=== PATIENT | male | born 1975 | race Caucasian/White ===

== ENCOUNTER 2017-09-12 20:41 | Inpatient (IN) | payer MEDICAID, OTHER ==
[~2017-09-12] VITALS: Ht 182.9 cm; Wt 148.3 kg
[2017-09-12] MEDS ORDERED: ABILIFY30 MG PO (21:01)
[2017-09-12] MEDS ORDERED: CHLORPROMAZINE100 MG PO (21:04)
[2017-09-12] MEDS ORDERED: CHLORPROMAZINE200 MG PO (21:32)
[2017-09-12] MEDS ORDERED: KLONOPIN2 MG PO (21:34)
[2017-09-12] MEDS ORDERED: LEXAPRO10 MG PO (21:34)
[2017-09-12] MEDS ORDERED: HYDROXYZINE HCL50 MG PO (21:35)
[2017-09-12] MEDS ORDERED: LAMICTAL25 MG PO (22:11)
[2017-09-12] MEDS ORDERED: LAMICTAL200 MG PO (22:11)
[2017-09-12] MEDS ORDERED: CHLORTHALIDONE25 MG PO (22:12)
[2017-09-12] MEDS ORDERED: MINIPRESS5 MG PO (22:12)
[2017-09-12] MEDS ORDERED: NORVASC10 MG PO (22:12)
[2017-09-12] MEDS ORDERED: FLOVENT HFA12 G1 INH (22:13)
[2017-09-12] MEDS ORDERED: LASIX20 MG PO (22:13)
[2017-09-12] MEDS ORDERED: AMARYL4 MG PO (22:15)
[2017-09-12] MEDS ORDERED: LISINOPRIL10 MG PO (22:16)
[2017-09-12] MEDS ORDERED: METFORMIN HCL1000 MG PO (22:16)
[2017-09-12] MEDS ORDERED: BACLOFEN10 MG PO (22:17)
[2017-09-12] MEDS ORDERED: SIMVASTATIN40 MG PO (22:17)
[2017-09-12] MEDS ORDERED: NORCO 5-325 TA1 EACH PO (22:17)
--- NOTE | 2017-09-13 01:40 | NUR ---
PT ARRIVED TO FLOOR FROM E.D. SHORTLY AFTER 0100. PT IS ALERT/ORIENTED, FROM [facility], ESCORTED BY 2 GUARDS. PT COMPLAINS OF PAIN IN BACK AND LEG, DR. CHRISTIE AWARE AND WOULD LIKE TO HOLD OFF ON PAIN MEDICATION UNTIL A FEW MORE BLOOD PRESSURE READINGS ARE OBTAINED. LUNGS CLEAR, RESPIRATIONS ARE SHALLOW AND TACHYPNIC. HR REGULAR, TACHYCARDIC. BOWEL TONES HYPOTACTIVE. MATT IN PLACE WITH TEMP PROBE. PT FEBRILE, SKIN APPEARS FLUSHED AND DIAPHORETIC. SMALL RASH NOTED TO LEFT FOREARM. CELLULITIS TO RIGHT LOWER LEG EXTENDS FROM ANKLE TO KNEE, APPEARS RED AND HOT TO TOUCH. EDEMA PRESENT IN RIGHT LOWER LEG, NON- PITTING. PERIPHERAL PULSES ARE STRONG AND EQUAL BILATERALLY, CMS IS INTACT. RIGHT LEG ELEVATED ON PILLOWS. IV SITES X2, PATENT, INFUSING WNL. CB, NO SLIDING SCALE REQUIRED. RESTRAINTS X4 EXTREMITIES. GUARDS REMAINS IN ROOM. WILL CONTINUE TO MONITOR.
--- NOTE | 2017-09-13 03:43 | NUR ---
PT CONTINUES TO RATE BACK PAIN 5/10 AND HAS A TEMP OF 102.2. PRN TYLENOL ADMINISTERED AT THIS TIME. WILL CONTINUE TO MONITOR.
--- NOTE | 2017-09-13 04:00 | NUR ---
ASSESSMENT COMPLETED. PT IS ALERT/ORIENTED. LUNGS CLEAR, DIM IN BASES, 2L O2 VIA NC IN PLACE, TACHYPNIC. HR REGULAR, TACHYCARDIC. BOWEL TONES REMAIN HYPOACTIVE. REDNESS TO RIGHT LOWER LEG WAS OUTLINED EARLIER IN THE SHIFT, REDNESS REMAINS WITHIN OUTLINE. RLE CONTINUES TO APPEAR RED AND FEEL HOT TO TOUCH WITH NON-PITTING EDEMA PRESENT. 2+EDEMA NOTED IN BILATERAL FEET. PULSES REMAIN STRONG AND EQUAL BILATERALLY. MATT PATENT. RASH TO LEFT FOREARM NO LONGER VISIBLE. 2 GUARDS REMAIN AT BEDSIDE, SHACKLES X4 EXTREMITIES REMAIN IN PLACE. CMS INTACT. PT DENIES REQUESTS, WILL CONTINUE TO MONITOR.
--- NOTE | 2017-09-13 06:00 | NUR ---
PT'S WORK OF BREATHING APPEARS INCREASED, HE TAKES SHALLOW BREATHS AND EXHALES THROUGH LOOSE LIPS. RATE REMAINS TACHYPNIC. CALLED R.T. TO HAVE HIM COME PLACE CPAP, DISCUSSED THIS WITH PT WHO WAS SLIGHTLY RESISTANT AT FIRST, BUT AGREED TO WEAR THE CPAP FOR A LITTLE WHILE. INSTRUCTED THE GUARDS HOW TO REMOVE THE MASK IF PT STARTS ACTING LIKE HE WANTS IT REMOVED, SINCE HIS HANDS ARE RESTRAINED AND HE IS UNLIKELY ABLE TO REACH THE MASK HIMSELF. PT TOLERATED PLACEMENT OF CPAP WELL, WILL CONTINUE TO MONITOR.
--- NOTE | 2017-09-13 07:22 | NUR ---
Patient's SCr has improved, from 2.82 to 2.13. Est ClCr = 68.4ml/min. Enoxaparin now dosed at 40mg sub-q daily per protocol
--- NOTE | 2017-09-13 08:55 | NUR ---
PT AWAKE, ABLE TO EAT 100% OF HIS BREAKFAST. PT C/O BACK PAIN, PO TYLENOL GIVEN. PT REQUIRES REASURANCE THAT HE IS RECIEVING HIS PSYCH MEDICATIONS. PT PRODUCING EXCELLENT AMOUNTS OF URINE.
--- NOTE | 2017-09-13 12:15 | NUR ---
PT ABLE TO EAT 100% OF BREAKFAST AND LUNCH. PT C/O 8 BACK PAIN, REPOSITIONED PT IN BED WITH ASSISTANCE FROM TWO AMANDA FLOREZ. PT AMOS WELL. PT RESISTANT TO COOLING METHODS.
--- NOTE | 2017-09-13 12:21 | NUR ---
IV SITE IN RT UPPER ARM REDRESSED, SITE INTACT, FLUSHES EASILY.
--- NOTE | 2017-09-13 12:55 | NUR ---
1 MG IV ATIVAN GIVEN AND LIDOCANE PATCHES APPLIED TO PT LOW BACK PER 'S BEDSIDE ORDER. BOTH [facility] GAURDS ASSISTED TO REPOSITION PT IN ORDER TO APPLY LIDOCANE PATCHES TO LOW BACK. PT AMOS WELL.
--- NOTE | 2017-09-13 13:15 | NUR ---
COOLING BLANKET APPLIED TO PT PER 'S ORDERS. SET TO MODERATE COOL SPEED. PT AMOS WELL.
--- NOTE | 2017-09-13 15:24 | NUR ---
PT WAKES EASILY TO TAKE PO PILLS. PT STATES "I THINK THAT BLANKET IS WORKING, I'M FEELING BETTER". PT CURRENT TEMP IS 102.8, HR DOWN TO 123. PT STATES "I WAS ABLE TO SLEEP A LITTLE BIT". AMANDA FLOREZ X2 AT BEDSIDE.
--- NOTE | 2017-09-13 16:07 | NUR ---
Medications reconciled using [employer] MARS
--- NOTE | 2017-09-13 17:10 | NUR ---
CALLED TO UPDATE ON PT STATUS, SPREADING REDNESS ON RT LEG, INCREASED TEMP TO 103.6. ORDER GIVEN TO TURN TEMP DOWN ON COOLING BLANKET TO 60 DEGREES.
--- NOTE | 2017-09-13 17:20 | NUR ---
COOLING BLANKET TURNED DOWN TO 60 DEGREES. PT GOWN AND TOP SHEET CHANGED. PT AMOS WELL, PT APPEARS TO BECOMING SOMNOLENT.
--- NOTE | 2017-09-13 17:25 | NUR ---
PT DINNER [place], PT REFUSED, STATES "I JUST DON'T WANT ANY FOOD RIGHT NOW".
--- NOTE | 2017-09-13 17:45 | NUR ---
IV FLUIDS INCREASED TO 150 ML/HR PER VERBAL ORDER.
--- NOTE | 2017-09-13 18:06 | NUR ---
PT DRANK 250 ML ICE WATER, COOL DAMP CLOTH PLACED ON HEAD TO ASSIST WITH COOLING PT.
--- NOTE | 2017-09-13 20:19 | NUR ---
assessment done.TALKED WITH PATIENT ABOUT PLAN OF CARE FOR NIGHT. INCICATES UNDERSTANDING. MATT CATH PATENT WITH CLEAR YELLOW URINE NOTED. URINARY OUTPUT MONITORED Q 1 HR. TEMP MONITORED VIA MATT TEMP PROBE. IVF INFUSING AT 150 ML/HR. OFFICERS X 2 IN ROOM. COOLING BLANKET ON. CURRENT TEMP-103.2. CPAP ON AT 35% FIO2. RR-38.
--- NOTE | 2017-09-13 21:07 | NUR ---
ROUTINE MEDS GIVEN. MORPHINE 2 MG IV GIVEN FOR GENERALIZED PAIN. VISTARIL 100MG PO GIVEN WELL TYLENOL 650 MG. PATIENT IS SOMEWHAT IRRITABLE ABOUT STAFF BOTHERING HIM. STATES "I WANT TO BE LEFT ALONE" EXPLAINED TO PATIENT ABOUT TREATMENTS, HOWEVER PATIENT REMAINS IRRITATED. ACCUCHECK-154, NOVOLOG 2 UNITS SQ GIVEN.
--- NOTE | 2017-09-13 23:35 | NUR ---
MORPHINE 2 MG IV REPEATED OF COMFORT. HAS BEEN MORE RESTFUL SINCE MORPHINE GIVEN EARLIER. HR-110,RR-30.
--- NOTE | 2017-09-14 00:15 | NUR ---
CPAP OFF PER PT WISHES DURNING MID LINE CATH PLACEMENT. O2 AT 4 LITERS PER NC APPLIED. O2 SAT WITH CPAP 35% 95 TO 97. ON 4 L NC, SAT 90 TO 92. RESP RATE FROM 36 ON CPAP TO 42 ON NC. USING ABD MUSCLES WITH BREATHING.
--- NOTE | 2017-09-14 00:26 | NUR ---
ATIVAN 1 MG IV GIVEN, FOR MID LINE PLACEMENT.
--- NOTE | 2017-09-14 01:21 | NUR ---
MIDLINE INSERTION NOTE: ASKED BY DR. CHRISTIE TO EVALUATE PATIENT FOR A POTENTIAL MIDLINE PLACEMENT. AFTER REVIEWING THE CHART AND DISCUSSING POTENTIAL PROCEDURE WITH THE PATIENT, NO ABSOLUTE CONTRAINDICATIONS WERE IDENTIFIED. PATIENT ABLE TO SIGN CONSENT FORM. PATIENT'S RIGHT ARM WAS EVALAUTED WITH THE [employer] SITE RITE MACHINE. PT'S BASILIC, BRACHIAL, AND CEPHALIC VEINS WERE IDENTIFIED. PATIENT'S CEPHALIC WAS EASIEST TO IDENTIFY AND NOTED TO BE APPROX 8 FR. PT'S BRACHIAL WAS ALSO NOTED TO BE GREATER THAN 8 FR AND THE LARGEST OF THE THREE VESSELS IDENTIFIED. PATIENT'S BASILIC VEIN WAS AT LEAST 7 FR BUT WAS HARD TO LOCATE, THERE SEEMED TO BE SEVERAL SIMILAR SIZED VEINS IN THE SAME LOCATION THE BASILIC. ULTIMATELY, AFTER USING [employer] RECOMMENDED STERILE TECHINIQUE GUIDELINES TO STERILLY PREP THE PATIENT'S ARM, THE BASILIC VEIN WAS ACCESSED ON THE FIRST TRY. THE GUIDEWIRE, INTRODUCER, AND MIDLINE ALL ADVANCED EASILY INTO THE VEIN. THERE WAS DARK, NONPULSATILE BLOOD RETURN FROM THE IV ACCESS. THE MIDLINE CATHETER WAS NOT TRIMMED AND LEFT AT 20 CM DUE TO PATIENT'S ARM LENGTH UPON MEASUREMENT. THE MIDLINE CATHETER ARMANDO BLOOD BACK AND FLUSHES EASILY. DRESSING WITH SECUREMENT DEVICE AND ANTIMICROBIAL PATCH UNDERNEATH WERE APPLIED. REPORT GIVEN TO DAWNA BERTRAND WHO IS CARING FOR THE PATIENT. [employer] GUARDS REMAINED AT BEDSIDE ENTIRE PROCEDURE. PATIENT TOLERATED PROCEDURE WELL.
--- NOTE | 2017-09-14 01:21 | NUR ---
MID LINE CATH PLACED TO R UPPER INNER DELTOID BY Garrett TIWARI RN. PATIENT TOLERATED WELL. CPAP REAPPLIED.
--- NOTE | 2017-09-14 03:30 | NUR ---
TYLENOL 650 MG PO GIVEN FOR FEVER. MORPHINE 2 MG IV REPEATED FOR COMFORT.
--- NOTE | 2017-09-14 04:30 | NUR ---
SLEEPING WIHT BIPAP ON. HAS FORCED EXP PHASE.
--- NOTE | 2017-09-14 07:07 | NUR ---
MERLINE JACK. O2 AT 4 L NC. TEMP-101.5. COOLING BLANKET OFF SINCE 0500. RLL ELEVATED. REMAINS PINK IN COLOR. LEG UNCHANGED THROUGH THIS SHIFT. BEDSIDE REPORT GIVEN.
--- NOTE | 2017-09-14 08:15 | NUR ---
IV SITE AND MIDLINE INTACT, NO REDNESS OR SWELLING NOTED, FLUIDS INFUSING EASILY INTO MIDLINE SITE. LEFT HAND IV SITE FLUSHES EASILY. PT SLIGHTLY SOMNOLENT, DIFFICULT TO COMMUNICATE WITH HE IS A MAN OF FEW WORDS.
--- NOTE | 2017-09-14 08:16 | NUR ---
Vancomycin dosed at 2g iv q 12 hrs. Trough to be drawn today 09/14/17 at 1130 *just prior to 4th dose. Renal function has improved significantly since admittance. Serum creatinine declined from 2.82 mg/dL to 1.26 mg/dL this am.
--- NOTE | 2017-09-14 08:21 | NUR ---
PT PLACED BACK ON COOLING BLANKET HIS TEMP IS 102.2
--- NOTE | 2017-09-14 10:20 | NUR ---
LABS DRAWN FROM MIDLINE VENOUS ACCESS FOR BLOOD CULTURES, 10 ML WASTE. LIDOCANE PATCHES ON BACK REPLACED WITH TWO GAURDS ASSISTING TO LIFT PT TO PARTIAL SITTING POSITON. PT VERY STIFF AND PAINFUL TO MOVE. PT COOPERATIVE.
--- NOTE | 2017-09-14 11:12 | NUR ---
PT TAKEN OFF OF COOLING BLANKET CORE TEMP IS NOW 38.1 C. MATT TEMP PROB MOVED BACK TO MAIN ISHAN MONITOR. PT APPEARS TO BE SLEEPING AT THIS TIME, CPAP PLACED ON PT.
--- NOTE | 2017-09-14 12:16 | NUR ---
PT PLACED ON CPAP
--- NOTE | 2017-09-14 12:57 | NUR ---
PT DIAPHORETIC AND SLEEPING, PT WAKES EASILY STATES "I FEEL BETTER". PT HAS CPAP BACK ON AFTER TAKING PILLS. IV SITES INTACT, NO REDNESS OR SWELLING NOTED, FLUIDS INFUSING EAISLY. COOLING BLANKET STILL OFF PT HIS TEMP IS NOW DOWN TO 99.8
--- NOTE | 2017-09-14 13:34 | NUR ---
Vancomycin trough level today drawn just prior to 4th dose = 9.0. (goal = 15-20). Change dosing to 2 g iv q 8 hrs (decreasing dosing interval from 12 to 8 hrs). Will redraw vancomycin trough level 09/16 at 11:30
--- NOTE | 2017-09-14 14:10 | NUR ---
CALLED TO UPDATE ON BLISTERS AND SKIN BREAKDOWN, ORDER GIVEN OVER PHONE TO REQUEST [facility] TO REMOVE BELLY CHAINS FOR PREVENTION OF FURTHER SKIN BREAKDOWN.
--- NOTE | 2017-09-14 15:30 | NUR ---
PT SAT UP ON THE SIDE OF THE BED WITH HEAVY THREE PERSON ASSIST. WASHED PT HAIR, FACE AND BODY. MATT CATH CARE DONE. BLISTERS DESCOVERED ON PT BUTTOCKS AND UNDER [employer] CORRECTIONAL BELLY CHAINS. CAREFULLY WASHED AREAS AND DRIED, PLACED PILLOW CASES INBETWEEN CHAINS AND SKIN, CHAINS LOOSENED BY [employer] OFFICER PER NURSE REQUEST. LINENS AND GOWN CHANGED. PT ABLE TO STAND AT BEDSIDE WITH WALKER AND TWO PERSON SUPPORT TWICE FOR ABOUT 1 MIN. PT ABLE TO PASS FLATUS.
--- NOTE | 2017-09-14 16:28 | NUR ---
BELLY CHAINS REMOVED.
--- NOTE | 2017-09-14 16:40 | NUR ---
PICTURES TAKEN OF BLISTERS AND SKIN BREAKDOWN FROM BELLY CHAINS, AMANDA PAYTON SIGNED PICTURE CONSENT FORM FOR PT. PT REPOSTIONED IN BED FOR COMFORT.
--- NOTE | 2017-09-14 18:45 | NUR ---
REQUESTED TO HAVE PT PLACED ON WARMING BLANKET DUE TO CORE BODY TEMP OF 96.3, GOAL CORE BODY TEMP OF 99.3.
--- NOTE | 2017-09-14 18:50 | NUR ---
PT PLACED BACK ON [facility] WARMING BLANKET DUE TO CORE BODY TEMP OF 96.3.
--- NOTE | 2017-09-14 19:30 | NUR ---
SHIFT REPORT RECEIVED FROM DAWNA BE. OBSERVED PT'S REDNESS TO LEGS, AND BLISTERS/REDNESS TO ABDOMEN AND BACK WHERE BELLY CHAIN WAS. PT CURRENTLY HAD CPAP IN PLACE, BUT BEGAN PULLING ON IT AND SO WE SWITCHED TO OXYMASK WITH 4L O2. 2 GUARDS AT BEDSIDE. NO REQUESTS AT THIS TIME.
--- NOTE | 2017-09-14 21:20 | NUR ---
ASSESSMENT COMPLETED. PT APPEARS LETHARGIC, IS SLOW TO RESPOND, EYES REMAIN CLOSED WHILE HE ANSWERS QUESTIONS. DENIES PAIN. LUNGS SOUND DIMINISHED, COARSE IN LEFT UPPER LOBE. 6L O2 VIA NC IN PLACE, PT REMOVED FOR A FEW MINUTES AND DESATURATED TO 87%, PT AGREED TO WEAR IT AFTER SOME ENCOURAGEMENT, SATS RETURNED TO 92%. HR TACHY, REGULAR. BOWEL TONES SLIGHTLY HYPOACTIVE, ABDOMEN IS LARGE AND SLIGHTLY FIRM. SKIN APPEARS FLUSHED. PT WEARING WARMING BLANKET ATTACHED TO MATT TEMP PROBE SET TO 99.3, CORE TEMP CURRENTLY 98.3. REDNESS TO RIGHT LOWER LEG OUTLINED, APPEARS TO BE RECEDING AND APPEARS MORE PINK AND LESS RED NOW, STILL FEELS HOT TO THE TOUCH. REDNESS NOTED TO RIGHT THIGH AND GROIN, OUTLINED. EDEMA PRESENT IN RLE AND BILAT FEET. BLISTERS AND STAGE 2 PRESURE ULCERS AROUND BACK AND ABDOMEN WHERE BELLY CHAIN WAS. BELLY CHAIN NOW REMOVED, ANKLE RESTRAINTS REMAIN IN PLACE AND 2 GUARDS AT BEDSIDE. MATT DRAINING FREELY, UO QS. CB, NO INSULIN COVERAGE REQUIRED. PT DENIES NEEDS, WILL CONTINUE TO MONITOR.
--- NOTE | 2017-09-14 22:43 | NUR ---
PATIENT PLACED BACK ON CPAP AT THIS TIME AT 35% FI02. PT'S SP02 WAS HOVERING AT 89% FOR A FEW MINUTES ON 6 L NASAL CANNULA. PATIENT AGREEABLE TO WEAR CPAP BUT IS STILL SLEEPY. PATIENT'S WARMING BLANKET WAS TURNED OFF AT THIS TIME WELL DUE TO TEMP BEING 99.5. WILL CONTINUE TO MONITOR CLOSELY. HEART RATE IN THE UPPER 90s-100s, SINUS. SP02 IS NOW 95% ON CPAP AND RR IS STILL ELEVATED, CURRENTLY AT 31. [facility] GUARDS REMAIN IN ROOM AND ATTENTIVE.
--- NOTE | 2017-09-14 23:29 | NUR ---
IV PUMP ALARMING, VANCO INFUSION COMPLETED. PT'S TEMP: 99.9, REMOVED WARMING BLANKET AT THIS TIME. PT RESTING, NO APPARENT DISTRESS. CPAP IN PLACE. WILL CONTINUE TO MONITOR.
--- NOTE | 2017-09-15 | NUR ---
PT'S TEMP CONTINUED TO INCREASE TO 100.4, PRN TYLENOL ADMINISTERED. PLACED ON OXYMASK FOR FEW MINUTES AFTER PT SWALLOWED PILLS, THEN REPLACED CPAP. CONTINUES TO DENY PAIN AND NAUSEA. LUNGS SOUND CLEAR/DIM, REMAINS TACHYPNIC. HR TACHY. BOWEL TONES ACTIVE. MATT PATENT. REDNESS TO LEG APPEARS UNCHANGED. IVF INFUSING WNL. PT DENIES NEEDS, WILL CONTINUE TO MONITOR.
--- NOTE | 2017-09-15 00:36 | EKG ---
[facility] [id number] [facility] [place] [address] Signed Sinus tachycardia Otherwise normal ECG No previous ECGs available Confirmed by ALEJANDRA CHRISTIE MD ([id number]) on 09/15/2017 12:35:54 AM Electronically Signed By: ALEJANDRA CHRISTIE MD 09/15/17 0036 PATIENT NAME: GUILLERMINASCHMIDTABHIJIT JACKSON JR Electrocardiogram DATE OF : 77 PHYSICIAN: ALEJANDRA CHRISTIE MD REPORT #: [id number] REPORT IS CONFIDENTIAL AND NOT TO BE RELEASED WITHOUT AUTHORIZATION
--- NOTE | 2017-09-15 00:52 | NUR ---
PT PLACED ON OXYMASK ON 5L O2. PRN IBUPROFEN GIVEN FOR TEMP: 101.2. SGT. NELSON FROM THE [facility] CAME TO EVALUATE PT'S SKIN SINCE PT'S HANDS HAVE NOT BEEN RESTAINED SINCE ~1600 TODAY. DISCUSSED WITH HIM PT'S CONDITION AND SKIN BREAKDOWN ISSUES. HE AGREES TO DIFFERENT FORM OF RESTRAINTS RATHER THAN THE CHAIN, STATES HE WILL RETURN.
--- NOTE | 2017-09-15 02:42 | NUR ---
PATIENT UNCOMFORTABLE IN BED AND ASKING TO BE REPOSITIONED. PT STATES HIS BACK IS HURTING HIM. PT GIVEN 2 MG IV MORPHINE AT THIS TIME. PT PLACED BACK ON CPAP AFTER MORPHINE GIVEN. PT NOTED TO BE VISIBLY SWEATING. LAST BP 111/60 (70). PT HELPED WIPE SWEAT OFF HIS FACE. TEMP IS 100.1 PER MATT TEMP PROBE. SP02 IS 98% ON CPAP 35 % FI02. HEART RATE CURRENTLY 98.
--- NOTE | 2017-09-15 03:29 | NUR ---
CALLED AND SPOKE TO DR. CHRISTIE ABOUT PT'S DECREASING URINE OUTPUT. DR. CHRISTIE ORDERED TO INCREASE HIS MAINTANENCE FLUIDS TO 150ML/HR AND ADMINISTER A ONE TIME 500ML NS BOLUS OVER ONE HOUR. DR. CHRISTIE ALSO NOTIFIED THAT PT HAD FEVER AND RECEIVED TYLENOL AND ADVIL. PT REQUESTED TO SIT UP AT SIDE OF BED. PT ASSISTED TO SIDE OF BED WITH 2 RN AND 2 GUARDS ASSISTING HIM. PT DIAPHORETIC. SAT UP FOR A FEW MINUTES AND THEN WAS READY TO LAY DOWN AGAIN. RIGHT LEG ELEVATED ON 2 PILLOWS AGAIN. PT APPEARS COMFORTABLE. SPO2: 96% ON 3L O2 VIA NC. WILL CONTINUE TO MONITOR.
--- NOTE | 2017-09-15 04:10 | NUR ---
PT SLEEPING, NO APPARENT DISTRESS. RR:28. SPO2: 90% ON 3L, TITRATED UP TO 4L O2 VIA NC. HR REGULAR. MATT PATENT. IVF INFUSING WNL. ANKLE RESTRAINTS IN PLACE, 2 GUARDS AT BEDSIDE. WILL CONTINUE TO MONITOR.
--- NOTE | 2017-09-15 05:43 | NUR ---
IN TO DRAW LABS FROM MIDLINE IV. PT SLEEPING, WORK OF BREATHING APPEARS SOMEWHAT INCREASED, SWITCHED TO CPAP, PT TOLERATED WELL. TEMP: 98.1, WARM BLANKETS PLACED ON PT. WILL CONTINUE TO MONITOR.
--- NOTE | 2017-09-15 09:17 | NUR ---
PT TEMP INCREASED EVEN WITH ADVIL PO GIVEN. COOLING BLANKET PLACED ON PT. CURRENT TEMP 101.7
--- NOTE | 2017-09-15 09:42 | NUR ---
DR CHRISTIE INTO SEE PT THIS AM. COOLING BALAMKET REMOVED AT THIS TIME.TEMP 102.0 PT C/O'S BEING COLD.
--- NOTE | 2017-09-15 10:08 | NUR ---
PT WORK OF BREATHING INCREASEING, BUT PT REFUSES TO WEAR BIPAP"I WILL TEAR THIS MASK TO PICES IF I HAVE TO WEAR IT" THIS WAS REMOVED, PLACED BACK ON NC AT 5L'S. WITH A FIO2 OF 91% AT THIS TIME.
--- NOTE | 2017-09-15 10:48 | NUR ---
PT WANTED TO GET UP OUT OF BED AT THIS TIME. ALLOWED PT TO STAND AT THE EDGE "I HAVE TO GO TO THE BATHROOM" ONCE UP AND STANDING AT THE EDGE HE WANTED TO GO BACK TO BED. FOUR PERSON TO ASSIST PT FROM STANDING TO A LYIN POSITION AND MOVE UP IN BED. HEART RATE INCREASES TO THE 120'S BUT ONCE SETTLED HE BACK INTO THE ONE TEENS. TWO CORRECTIONAL OFFICERS ASSISTED ALSO WITH THIS PROCESS.
--- NOTE | 2017-09-15 12:00 | NUR ---
PT HAVING INCREASED RESTLESSNESS AND ANGERY WANTING TO GO HOME. PT MEDICATED WITH 2MG IVP MORPHINE AND 1MG IVP ATAVIN AT THIS TIME.
--- NOTE | 2017-09-15 12:18 | NUR ---
PT APPEARS TO BE RESTING AT THIS TIME, TALKS TO SELF WHILE SLEEPING, RESP RATE CONTIOUES TO BE ELEVATED EVEN WITH THE VAPOTHERM INPLACE.
--- NOTE | 2017-09-15 14:51 | NUR ---
PT TURNED TO HIS LEFT SIDE AT THIS TIME, ALSO MEDICATED WITH 2MG MORPHINE FOR SOB. PT C/O'S 'CAN'T GET ENOUGH AIR". PT FACE REMAINS RED IN COLOR. TWO CORRECTIONAL OFFICERS REMAIN AT THE BEDSIDE.
--- NOTE | 2017-09-15 14:58 | NUR ---
NUTRITION CONSULT ORDERED - NOT CLEAR WHAT FOR. PATIENT IS MORBIDLY OBESE BUT RESIDES AT THE [facility] WITH BIPOLAR DISORDER AND AGGRESSIVE BEHAVIOR. HE IS ON A 2000 CALORIE ADA DIET. IDEAL BW IS 185 LBS. ADJUSTED BW IS 220 LBS. ESTIMATED CALORIE NEEDS USING ADJ BW: [id number]. ESTIMATED PROTEIN NEEDS: 100-120 GRAMS/DAY. NO OTHER NUTRITION INTERVENTION DONE AT THIS TIME. WILL CONTINUE TO BE AVAILABLE IF NEEDED.
--- NOTE | 2017-09-15 15:22 | NUR ---
PT WANTING TO STAND AND GET UP, ALL STAFF ASSISTED WITH THIS PROCESS. TWO CORRECTIONAL OFFICERS AND TWO NURSING STAFF. PARTICAL BED BATH COMPLETED TILL PT SIAD ENOUGH. PT REFUSED CATHETER CARE, BACK TO BED REPOSITIONED AND SIDE RAILS UP
--- NOTE | 2017-09-15 15:52 | NUR ---
PT UP TO THE BEDSIDE WITH NO RESULTS. BACK TO BED WITH FOUR PERSON ASSISTANCE. TYLENOL 650MG PO AND 400MG ADVIL PO GIVEN AT THIS TIME TO HELP WITH FEVER 101.9 PER TEMP CATHETER.
--- NOTE | 2017-09-15 16:00 | NUR ---
PT TRANSPORTED TO CT VIA BED DID WELL WITH THIS, THEN TRANSPORTED BACK TO ROOM 130. DR CHRISTIE WITH STAFF DURING CT.
--- NOTE | 2017-09-15 16:50 | NUR ---
RETURNED FROM CT, PT ASLEEP AT THIS TIME, TWO CORRECTIONAL OFFICERS PRESENT.
--- NOTE | 2017-09-15 17:51 | NUR ---
PT IS BEING FED BY THE [place]OU[place]E INSTALLER, DUE TO ALL THE LINES AT THIS TIME. PT IS EATING AND TALKING WITH THEM. TALKED WITH DR CHRISTIE, HE WOULD LIKE STAFF TO POSITION PT TO HIS LEFT SIDE TO HELP WITH HIS BREATHING.
--- NOTE | 2017-09-15 18:02 | NUR ---
PT ATE WELL AND AT THIS TIME IS RESTING. PT AT THIS TIME WILL NOT ALLOW STAFF TO REMOVE PURPLE SHEET. STAFF WILL TRY AGAIN BEFORE SHIFT CHANGE.
--- NOTE | 2017-09-15 19:00 | NUR ---
PATIENT IN ROOM WITH 2 [employer] OFFICERS AT THIS TIME. GETTING REPORT TO PREP FOR BEGINING OF SHIFT EVAL.
--- NOTE | 2017-09-15 19:40 | NUR ---
PATIENT HAS A RIGHT BASILIC VEIN MIDLINE IN PLACE HEPARIN LOCKED AND A 20g IV SL IN LEFT DORSAL HAND. LUNGS SOUND LIKE HE IS MOVING AIR WELL, VARIOUS INSPIRATORY WHEEZES THOUGHOUT ALL LUNG SOLANO. DEMINISHED IN THE BASES. PATIENT'S LUNGS DO NO SOUND WET, NO CRACKLES HEARD ON AUSCULTATION. HOVER MAT WAS REMOVED FROM UNDER THE PATIENT. THEIR ARE SMALL BLISTERS AROUND THE CIRCUMFERENCE OF MOST OF THE PATIENT'S MID SECTION AROUND THE BACK CAUSED FROM THE BELLY CHAIN THAT WAS ORIGINALLY ON THE PATIENT FROM THE CORRECTION. PATIENT IS PALE AND DIAPHORETIC. MATT DRAINING WELL. BOWEL TONES ACTIVE X4. RT LEG PROPPED UP ON 2 PILLOWS TO THE LEVEL OF THE HEART. PATIENT DENIES PAIN. RASH/CELLULITIS ON THE LOWER RT LEG CONTINUES TO RECEED DISTAL FROM THE KNEE. PATIENT ON VAPO-THERM AT 30 LITERS/50% FIO2 SATING FROM 90-93%.
--- NOTE | 2017-09-15 21:37 | NUR ---
PATIENT'S RESP RATE HAS PICKED UP, PATIENT PLACED BACK ON CPAP PER RT. 2MG MORPHINE GIVEN FOR BACK AND LEG PAIN. PATIENT ALSO GIVEN 2 UNITS SQ INSULIN FOR A [id number].
--- NOTE | 2017-09-15 21:56 | NUR ---
FRANTZ'S SAT IS 100% ON 50% FI02. FIO2 DECREASED TO 40 % FOR THE THE TIME BEING.
--- NOTE | 2017-09-15 22:45 | NUR ---
PATIENT BECOMING MORE TACHYPNEIC, PATIENT PLACED BACK ON CPAP. MID LINE DRESSING CHANGED BY DAWNA Mercado, DUE TO SOME SEROSANGUINEOUS FLUID THAT WAS UNDER THE DRESSING. DRESSING CHANGED PER PROTOCOL WITH STERILE PROCEDURE.
--- NOTE | 2017-09-15 23:30 | NUR ---
PATIENT'S HR,RR, AND TEMPERATURE HAVE BEEN INCREASING. PATIENT GOT TYLENOL TO HELP BRING A CORE TEMP OF 100.5 DOWN. HR,RR, AND CORE TEMP CONTINUED TO INCREASE. 400MG ADVIL GIVEN A SECONDARY MEASEURE TO BRING TEMP DOWN IT HAD GONE UP FROM 99.6F TO 100.6F. CALLED WITH THIS INFORMATION THAT THE PATIENT WAS MORE TACHYCARDIC, RESPIRATORY RATE WAS INCREASING, PATIENT MORE RESTLESS AND THE MEDS THAT HAD BEEN GIVEN. DR. CHRISTIE DISCUSSED CORE TEMPERATURE WITH ME AND INSTRUCTED ME TO APPLY COOLING BLANKET IF CORE TEMP MADE IT TO 101.8F CORE TEMP AND TO REMOVE THE COOLING BLANKET IF CORE TEMP DROPPED BELOW 101.8F. ALSO WROTE NEW SPECIFIC ORDERS TO WHEN TO GIVE THE TYLENOL AND IBUPROFEN FOR FEVER.
--- NOTE | 2017-09-16 02:29 | NUR ---
PATIENT SLEEPING AT THIS TIME AND APPEARS COMFORTABLE. PT CONTINUES TO WEAR CPAP AT 40%. RR CURRENTLY 28 AND SP02 NOTED TO BE 96%. VISIBLE BEADS OF SWEAT NOTED ON PT'S FOREHEAD. HEART RATE CURRENTLY 89, SINUS RHYTHM. [employer] GUARDS REMAIN AT BEDSIDE. PT LOOKS THE MOST COMFORTABLE HE HAS LOOKED IN DAYS. CONTINUE TO LET PATIENT TO SLEEP.
--- NOTE | 2017-09-16 02:59 | NUR ---
PATIENT'S TEMP HAS COME DOWN TO 98.6. WARMING BLANKETS HAVE BEEN APPLIED. PATIENT IS RESTING QUIETLY, EYES CLOSED, RESPIRATORY RATE IS 24, BETTER THAN I HAVE SEEN IT FOR AWHILE. [employer] OFFICERS STILL AT BEDSIDE. URINE OUTPUT STILL EXCEEDING 75MLS/HR.
--- NOTE | 2017-09-16 04:05 | NUR ---
PATIENT REFUSING TO WHERE CPAP ANYMORE. TRIALED ON 6L/NC, BUT COULD NOT KEEP SATS ABOVE 88%. OXYMASK PLACED ON AT 15L/MIN AND SATS CAME UP INTO THE MID 90'S.
--- NOTE | 2017-09-16 05:00 | NUR ---
ABLE TO TITRATE O2 DOWN TO 10L/OXYMASK.
--- NOTE | 2017-09-16 05:40 | NUR ---
LABS HAVE BEEN DRAWN VIA MIDLINE PER PROTOCOL, PATIENT GETTING ANXIOUS AND IRRITABLE SAYS HE NEEDS TO GET UP TO THE TOILET TO HAVE A BM NOW. TWO NURSES AND 2 [employer] OFFICERS HELPED THE PPT OUT OF BED TO THE COMMODE, BUT HE HAD NO BM AND TRIED VERY HARD, FIGHT STAFF TO SOME EXTENT TO GET BACK INTO BED.
--- NOTE | 2017-09-16 06:30 | NUR ---
PATIENT BACK IN BED AND RESTING QUIETLY NOW, [employer] OFFICERS X2 STILL PRESENT AND HELPFUL. URINE HAS BEEN MORE THAN 75MLS/HR OUTPUT. PATIENT'S FEVER IS DOWN.
--- NOTE | 2017-09-16 06:49 | NUR ---
PATIENT TITRATED BACK TO A NASAL CANNULA AT 4L/MIN, AND STILL SATING AT 93%.
--- NOTE | 2017-09-16 07:30 | NUR ---
REPORT RECIEVED AT BEDSIDE. PATIENT RESTING WITH O2 AT 4 L PER NC ON. OFFICERS X 2 IN ROOM.
--- NOTE | 2017-09-16 08:00 | NUR ---
ASSESSMENT DONE. DR. CHRISTIE HERE TO SEE PATIENT. ORDERS RECIEVED. BREAKFAST ORDERED.
--- NOTE | 2017-09-16 09:00 | NUR ---
MATT CATH DC'D, EMPTIED FOR 400 ML OF ESTEVAN URINE.
--- NOTE | 2017-09-16 09:10 | NUR ---
PATIENT LAYING IN BED. WHITEBOARD UPDATED, ROOM TIDIED. VS TAKEN. BREAKFAST ORDER TAKEN.
--- NOTE | 2017-09-16 09:15 | NUR ---
RESTING, OXYMASK ON AT 6 L. O2 SAT-93. RESP RATE-40.
--- NOTE | 2017-09-16 10:50 | NUR ---
AM CARES GIVEN. THEN TO CHAIR WITH ASSIST. USED WALKER. LEGS ELEATED. DENIES NEED TO VOID AT THIS TIME. SHAKA WAS DC'D AT 0900. HAS BEEN TAKING WATER WELL. WHEN SITTING UP IN CHAIR, MOM AND SENNA GIVEN. O2 SOURCE HAS BEEN OXYMASK AT 4 L OR NC AT 4 L. WHEN PATIENT TAKES OFF O2 SAT DOWN TO 81.
--- NOTE | 2017-09-16 11:10 | NUR ---
PATIENT DOES NOT WANT TO ORDER LUNCH CURRENTLY. WILL CHECK BACK.
--- NOTE | 2017-09-16 13:00 | NUR ---
nurse in room hanging anand
--- NOTE | 2017-09-16 13:00 | NUR ---
STOOD AT BED SIDE WITH ASSIST TO VOID, IS VERY UNSTEADY ON FEET. UNABLE TO VOID. IS VERY FRUSTRATED AT TIMES. IS DIFFICULT TO UNDERSTAND. EUGENIA GONSALVES.
--- NOTE | 2017-09-16 13:30 | NUR ---
ATTEMPTING TO GET OOB. STATES I WANT TO SIT AT THE TABLE. IS IMPULSIVE, IRRITABLE AND FRUSTRATED. IS TAKING OFF O2 AT TIMES, PLACED ON CPAP AT THIS TIME RESP RATE 50. FACE VERY RED.
--- NOTE | 2017-09-16 13:43 | NUR ---
PATIENT STATED HE WANTED TO GO SIT ON THE TABLE. OFFERED TO MOVE HIM TO CHAIR INSTEAD, HE AGREED. WOULD NOT KEEP OXYGEN ON, AND DECIDED TO STAY IN BED. PATIENT AGREED TO KEEP BIPAP ON FOR 5 MINUTES. PATIENT COMBATIVE
--- NOTE | 2017-09-16 15:00 | NUR ---
STOOD TO VOID. UNABLE TO URINATE. TO CHAIR. BLADDER SCAN = [address] NORIEGA NOTIFIED. NO FUTHER ORDERS. IF UNABLE TO VOID OVER NEXT 2 HR WILL REPEAT BLADER SCAN, REPORT TO DR. NORIEGA.
--- NOTE | 2017-09-16 15:09 | NUR ---
ASSISTED NURSE WITH BLADDER SCAN. PATIENT HAD 493ML IN BLADDER.
--- NOTE | 2017-09-16 16:10 | NUR ---
TO BR VIA CHAIR. SAT ON TOLIET FOR APPROX 15 MIN, UNABLE TO HAVE BM. DUCOLOX SUPP GIVEN THEN AMBULATED BACK TO BED WITH ASSIST, DID USE WALKER. IS LESS DYSPNEIC WITH TEMP LOWER. AX TEMP-99.
--- NOTE | 2017-09-16 16:32 | NUR ---
PATIENT REQUESTED TO GO INTO BATHROOM TO TRY AND URINATE, DOES NOT FOLLOW COMMANDS WELL. IRRITABLE. BACK TO BED NOW.
--- NOTE | 2017-09-16 16:45 | NUR ---
AMBULATED TO BR USING WALKER.
--- NOTE | 2017-09-16 17:32 | NUR ---
nurse in room
--- NOTE | 2017-09-16 17:52 | NUR ---
UP TO BR, WAS WHEELED TO BR VIA CHAIR. WAS NOT ABLE TO USE WALKER WELL AT THIS TIME
--- NOTE | 2017-09-16 18:10 | NUR ---
BLADDER SCAN= 790. DR NORIEGA AWARE. ORDERS RECIEVED TO REPLACE MATT CATH.
--- NOTE | 2017-09-16 18:20 | NUR ---
MEDICATED WITH ATIVAN 1 MG IV AND MORPHINE 2 MG PRIOR TO MATT PLACEMENT, PATIENT IS VERY IRRITATED ABOUT PLACEMENT OF CATH. 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 TALKED TO PATIENT AT LENGHT TO WHY THE MATT NEEDED TO BE REPLACED. STILL IS UPSET ABOUT THIS BEING PLACED. MATT PLACED WITH RETURN OF DARK ESTEVAN URINE.
--- NOTE | 2017-09-16 18:33 | NUR ---
ASSISTED NURSE WITH PUTTING IN MATT CATHETER. PATIENT WAS IRRITABLE.
--- NOTE | 2017-09-16 19:06 | NUR ---
RESTFUL, REPORT GIVEN TO NEXT SHIFT.
--- NOTE | 2017-09-16 19:30 | NUR ---
FINISHING REPORT. PATIENT IS RESTING, EYES CLOSED, TACHYIPNEA, ON 4L/NC. 2 [employer] OFFICERS IN THE ROOM.
--- NOTE | 2017-09-16 20:30 | NUR ---
ASSESSMENT COMPLETE, EXPIRATORY AND INSPIRATORY WHEEZES IN THE UPPER LOBES, AND VERY DEMINISHED IN THE BILATERAL BASES. LIDOCAINE PATCH TAKEN OFF. VANCO HUNG AND RUNNING AND 2100 MEDS GIVEN.
--- NOTE | 2017-09-16 22:03 | NUR ---
PATIENT RESTING QUIETLY EYES CLOSED. ON CPAP FIO2=40%. 2 [employer] OFFICERS STILL AT BEDSIDE. URINE QS.
--- NOTE | 2017-09-16 22:59 | NUR ---
PATIENT AT 6/10 PAIN IN THE LOWER BACK AND RT LEG. 400MG IBUPROFEN PO GIVEN FOR COMFORT.
--- NOTE | 2017-09-16 23:33 | NUR ---
PATIENT'S AM=448, RR=38, TEMP=99.6 TEMPORAL, INCREASE IN VITAL SIGNS DISCUSSED WITH SHE WAS IN THE CCU. PATIENT PLACED BACK ON CPAP AND GIVEN 2MG IV MS AND 1MG IV ATIVAN.
--- NOTE | 2017-09-17 00:37 | NUR ---
PATIENT CHANGED BACK TO OXYMASK SINCE HE WOULD NOT LEAVE CPAP ON. CALLED DR. NORIEGA FOR FURTHE ORDERS PATIENT'S RR=38-40 AND HE WON'T KEEP O2 ON. AMENDED ORDERS FOR ATIVAN AND MORPHINE GIVEN.
--- NOTE | 2017-09-17 01:26 | NUR ---
BLOOD GAS DRAWN AFTER TALKING WITH . PATIENT PLACED ON BIPAPA AFTER 1MG ATIVAN AND 2 MG MORPHINE TO HELP PATIENT WITH DISCOMFORT AND RELAXATION.
--- NOTE | 2017-09-17 01:28 | NUR ---
STILL WAITING FOR BLOOD GAS RESULTS, HERE EXAMINING PATIENT.
--- NOTE | 2017-09-17 02:10 | NUR ---
PATIENT IS CURRENTLY RESTING QUIETLY EYES CLOSED, ON BIPAP AT 40%. tHIS IS THE MOST COMFORTABLE I HAVE SEEN THE PATIENT ALL NIGHT. 2 [employer] OFFICERS STILL PRESENT IN THE ROOM. SOFT WRIST RESTRAINTS APPLIED AT 0150 TO KEEP PATIENT FROM PULLING O2 DEVICES OFF HIS FACE, BUT HE HAS BEEN RESTING QUIETLY SINCE BEING PUT ON BIPAP.
--- NOTE | 2017-09-17 05:20 | NUR ---
PATIENT STILL REMAINS ON BIPAP, WAKING UP A LITTLE BIT NOW, COOPERATED WITH LAB DRAW. SOFT RESTRAINTS TO BILAT WRISTS CHECKED AGAIN AND RELEASED AND PASSIVE ROM EXERCISES DONE.
--- NOTE | 2017-09-17 07:30 | NUR ---
REPORT RECIEVED. PATIENT REMAINS ON BIPAP. CALM AT THIS TIME. 2 OFFICERS IN ROOM.
--- NOTE | 2017-09-17 07:57 | NUR ---
epap adjusted to [id number] for witnessed obstruction.
--- NOTE | 2017-09-17 08:08 | NUR ---
Cefepime dosing changed to 2g iv q 8 hrs per protocol
--- NOTE | 2017-09-17 08:40 | NUR ---
FEED PATIENT COUPLE BITES OF APPLESAUSE. REFUSING FUTHER BREAKFAST. ROUTINE MEDICATIONS GIVEN, TALKED TO PATIENT ABOUT PLAN OF CARE FOR DAY. C/O BACK PAIN. REQUESTING RESTRAINTS TO BE OFF. RESTRAINTS REMAIN ON. BIPAP REAPPLIED.
--- NOTE | 2017-09-17 10:00 | NUR ---
AM CARES GIVEN. TOLERATED WELL. IS COOPERATIVE. SAT UP AT BEDSIDE, THEN TRANSFERRED TO CHAIR. LEGS ELEVATED. IS ON O2 VIA NC AT THIS TIME. ENC TO USE I.S. AND HAZEL. REMAINS UNSTEADY ON FEET. PATIENT STATES HE FEELS BETTER. ORIENTED AT THIS TIME. DOES HAVE PERIODS OF CONFUSION, IS DIFFICULT TO UNDERSTAND.
--- NOTE | 2017-09-17 11:00 | NUR ---
TO BR VIA CHAIR. SMALL SMEAR OF STOOL NOTED, THEN BACK TO CHAIR, WHEELED TO BEDSIDE THEN TRANSFERRED TO BED. VERY UNSTEADY ON FEET. BIPAP REAPPLIED.
--- NOTE | 2017-09-17 12:30 | NUR ---
IV SITE STARTED TO LEFT INNER FA. REFUSING LUNCH. FEED PATIENT FEW BITES OF SERBERT. ACCUCHECK 132. MORPHINE 2 MG IV GIVEN FOR RESP COMFORT. RESP RATE BACK UP TO 40'S. RLL REMAINS ELEVATED ON PILLOW.
--- NOTE | 2017-09-17 13:00 | NUR ---
C/O FEELING COLD. AX TEMP-101.7.
--- NOTE | 2017-09-17 13:14 | NUR ---
TYLENOL GIVEN EARLIER FOR FEVER.
--- NOTE | 2017-09-17 13:30 | NUR ---
DR. NORIEGA AWARE OF FEVER. BLOOD CULT ORDERED.
--- NOTE | 2017-09-17 14:00 | NUR ---
TEMP-102.3 AX. ADVIL 400 MG PO GIVEN.
--- NOTE | 2017-09-17 15:00 | NUR ---
RIGHT LEG HAS BEEN ELEVATED ON TWO PILLOWS, LEG REMAINS RED WARM TO TOUCH AND SWOLLEN.
--- NOTE | 2017-09-17 15:05 | NUR ---
MORPHINE 2 MG IV GIVEN FOR RESP COMFORT. HAS BEEN TAKING WATER WELL.
--- NOTE | 2017-09-17 15:30 | NUR ---
RESTING. REMAINS ON BIPAP AT 40% FIO2 I=15, E=10.
--- NOTE | 2017-09-17 16:08 | NUR ---
assessment done, is diaphortic. ax temp-100.2.
--- NOTE | 2017-09-17 17:35 | NUR ---
TOOK MEALS VERY POOR. HAS BEEN TAKING WATER WELL. FEED PATIENT FEW BITES OF MASHED POTATOES FOR DINNER. AT TIMES PT IS CONFUSED TO PLACE/TIME. IS DIFFICULT TO UNDERSTAND.
--- NOTE | 2017-09-17 19:09 | NUR ---
REPORT TO NEXT SHIFT. REMAINS ON BIPAP. RESTFUL AT THIS TIME. URINE REMAINS TEA COLORED.
--- NOTE | 2017-09-17 19:30 | NUR ---
FINISHING REPORT AND PATIENT IS RESTING QUIETLY ON BIPAP, BEST HE HAS LOOKED TO ME IN PAST 3 DAYS. TWO [employer] OFFICERS ARE WITH HIM AT BEDSIDE.
--- NOTE | 2017-09-17 21:14 | NUR ---
PATIENT'S BACK AND LEG PAIN SEEM TO HAVE SUBSIDED AFTER 2MG OF MS AND 1MG ATIVAN TO RELAX. UPPER LUNG SOLANO CLEAR, DIMINISHED IN THE BILAT BASES. PATIENT'S ABD SEEMS MORE DISTENDED, BUT ARMS AND LEGS ARE NOT SWOLLEN. TWO [employer] OFFICERS AT BEDSIDE. PATIENT'S EYES CLOSED, RESTING QUIETLY ON BIPAP.
--- NOTE | 2017-09-17 21:49 | NUR ---
PATIENT REQUESTED TO TAKE A BREAK FROM BIPAP AND IS ON 10L/MIN OXY MASK AT THIS TIME SATS AT 94%.
--- NOTE | 2017-09-18 00:25 | NUR ---
PATIENT BACK ON BIPAP, RESPIRATORY RATE WAS BACK UP TO 40 AT TIMES, EVEN THOUGH SATS STAYED IN THE 90'S.
--- NOTE | 2017-09-18 02:05 | NUR ---
PATIENT RESTING QUIETLY ON HIS LEFT SIDE. PT STILL ON BIPAP AND DOING BETTER THAN I HAVE SEEN IN THE LAST THREE DAYS.
--- NOTE | 2017-09-18 03:52 | NUR ---
MD IS AWARE THE PATIENT IS TACHYPNEIC AND HAS A FEER AT TIMES. MD IS ALSO AWARE THAT PATIENT WILL DESATURATE IF OFF O2. PATIENT IS RESTING QUIETLY NOW ON HIS BIPAP AT 40%. NO COMPLAINTS OF PAIN, TWO [employer] OFFICERS AT BEDSIDE. PATIENT HAS HAD GOOD URINE OUTPUT AND SEEMS MORE MENTALLY CLEAR THAN YESTERDAY.
--- NOTE | 2017-09-18 04:56 | NUR ---
PATIENT REQUESTED A BREAK FROM THE BIPAP AND WAS PLACED BACK ON 10L/MIN OXYMASK AND IS SATING 94 AT 0440. PATIENT ALSO C/O RT LEG AND LOWER BACK PAIN.2MG IV MS GIVEN AND PATIENT IS RESTING QUIETLY NOW.2 [employer] OFFICERS STILL AT BEDSIDE.
--- NOTE | 2017-09-18 05:48 | NUR ---
PATIENT'S RESP RATE INCREASED BACK TO 42, DISCUSSED THIS WITH HIM AND THE BIPAP WAS PUT BACK ON AT 40%.
--- NOTE | 2017-09-18 06:45 | NUR ---
PATIENT FELT LIKE HE NEEDED TO HAVE A BOWEL MOVEMENT, SO THE 2 [employer] OFFICERS AND MYSELF GOT THE PATIENT UP TO THE BEDSIDE COMMODE. PATIENT COULD NOT HAVE BM. BEDDING WAS CHANGED. CATH BAG EMPTIED. PATIENT PUT BACK TO BED WITH FRESH LINENS AND TAKEN BACK OFF THE OXYMASK AND PLACED BACK ON BIPAP.PATIENT RESTING QUIETLY NOW.
--- NOTE | 2017-09-18 07:30 | NUR ---
REPORT RECIEVED. REMAINS ON BIPAP. RESTFUL.
--- NOTE | 2017-09-18 08:00 | NUR ---
ASSESSMENT DONE. DR. NORIEGA HERE TO SEE PATIENT.
--- NOTE | 2017-09-18 08:15 | NUR ---
CARE CONFERENCE DR NORIEGA, MYSELF, PATIENT DR NORIEGA WENT OVER ORDERS, DIAGNOSIS. PATIENT HAS NO QUESTIONS.
--- NOTE | 2017-09-18 08:20 | NUR ---
ROUTINE MEDS GIVEN. OFF BIPAP TO NC AT 5 L NC. C/O RLL PAIN 07/22. MORPHINE 2 MG IV GIVEN, OXYCODONE 10 MG PO GIVEN. HOB ELEVATED. TAKING WATER WELL. DENIES NAUSEA. IS AWARE OF PERSON, PLACE, TIME. IS TALKATIVE. COOPERATIVE. ABLE TO UNDERSTAND PATIENT TODAY.
--- NOTE | 2017-09-18 08:50 | NUR ---
to xray via bed, OPTICAL GOODS DRILL OPERATOR X2, [employer] OFFICERS X 2, RN WITH PATIENT.
--- NOTE | 2017-09-18 09:15 | NUR ---
RETURN TO CCU. TOLERATED ABD XRAY WELL. SITTING UP IN BED FOR BREAKFAST.
--- NOTE | 2017-09-18 09:25 | NUR ---
TOLERATED BREAKFAST WELL. BIPAP ON NOW. SEVERE PAIN IN RLL WITH ELEVATION.
--- NOTE | 2017-09-18 09:40 | NUR ---
SLEEPING WITH BIPAP ON. SAT-97, HR-102,RR-34.
--- NOTE | 2017-09-18 10:30 | NUR ---
REMAINS ASLEEP. NO DISTRESS NOTED.
--- NOTE | 2017-09-18 12:15 | NUR ---
REFUSING LUNCH AT THIS TIME.
--- NOTE | 2017-09-18 15:00 | NUR ---
took late jadyn julian. ROUTINE KLONIPIN 2 MG PO GIVE. ATIVAN 1 MG IV GIVEN. BIPAP REAPPLIED.
--- NOTE | 2017-09-18 17:30 | NUR ---
TOOK CLEAR LIQUID ENSURE, REFUSED FOOD. OXYCODONE 10 MG PO GIVEN FOR C/O LEG PAIN. R LEG REMAINS ELEVATED ON 2 PILLOWS.
--- NOTE | 2017-09-18 19:07 | NUR ---
RESTFUL, IS ON BIBAP AT 40% I-15, E-10
--- NOTE | 2017-09-18 19:33 | NUR ---
REPORT RECEIVED FROM JERZY TONEY. PT IS RESTING IN BED WITH BIPAP ON.
--- NOTE | 2017-09-18 19:46 | NUR ---
RT IN TO DO NEB TX
--- NOTE | 2017-09-18 20:30 | NUR ---
HS MEDS GIVEN, ASSESSMENT DONE. RIGHT LEG ELEVATED UP ON PILLOWS. PT C/O PAIN IN RIGHT LEG, PRN PAIN MEDS GIVEN. PT DOWN TO 85% ON ROOM AIR WHILE TAKING PILLS THEN BACK ON BIPAP WITH SATS IMPROVING UP TO 98%. WAS ABLE TO DRINK ALL OF AN ENSURE WHILE OFF BIPAP. VERY SLEEPY, JUST WANTS TO GO BACK TO SLEEP.
--- NOTE | 2017-09-18 22:30 | NUR ---
IN TO EMPTY CATHETER, PT CONTINUES TO SLEEP WEARING BIPAP, WILL AROUSE TO VOICE THEN QUICKLY BACK TO SLEEP.
--- NOTE | 2017-09-19 00:20 | NUR ---
ASSESSMENT DONE. PT DENIES NEEDS, SLEEPY, WANTS TO WEAR BIPAP AND GO BACK TO SLEEP. RIGHT LEG REMAINS ELEVATED UP ON PILLOWS. IV ABX HUNG.
--- NOTE | 2017-09-19 01:34 | NUR ---
PT CONTINUES TO SLEEP WEARING BIPAP. SPOW 98%, RR 22, HR 94, TEMPORAL TEMP 98.1.
--- NOTE | 2017-09-19 03:30 | NUR ---
PT HAD PERIOD OFF BIPAP, WORE NC AT 5L AND TOLERATED WELL, SATS UP IN 90'S.
--- NOTE | 2017-09-19 08:26 | NUR ---
pt sitting up in bed eating breakfast at this time. Wet washcloth given to pt so he could wash his face. Blood glucose level checked prior to breakfast and was 105, Char-RN notified. Vital signs also taken at this time.
--- NOTE | 2017-09-19 08:35 | NUR ---
IV AND PICC SITE INTACT, FLUIDS AND FLUSHES INFUSING EASILY. PT DENIES PAIN AT EITER SITE. PT MORE CLEAR MENTALLY THIS AM, AND ABLE TO COMMUNICATE MORE EFFECTIVLY THAN HE HAS IN THE PAST.
--- NOTE | 2017-09-19 12:25 | NUR ---
PT CURRENTLY EATING LUNCH TOOK PO MEDS WELL. WAITING FOR VANCO THROUGH LAB RESULTS BEFORE STARTING ABX.
--- NOTE | 2017-09-19 16:12 | NUR ---
IV SITE AND PICC SITE INTACT, NO REDNESS OR SWELLING NOTED. PT DENIES PAIN WITH FLUSH OR INFUSION.
--- NOTE | 2017-09-19 18:37 | NUR ---
PT ABLE TO EAT MOST OF HIS BREAKFAST, THEN SLEPT FOR MOST OF THE MORNING. PT REFUSED TO WORK WITH PHYSICAL THERAPY AT 1000, RESCHEDULED TO WORK WITH THEM AT 1315, PT AGREABLE TO THIS. PT GIVEN PAIN MEDICATION X3 DURING SHIFT. PT ABLE TO AMBULATED TO THE TOILET X2 AND SAT UP IN THE CHAIR FOR ABOUT ONE HOUR. PT GIVEN BATH BY RIVET THROWER, GOWN AND LINENS CHANGED. PT ABLE TO HAVE TWO SMALL HARD FORMED STOOLS WHEN UP TO THE TOILET. PT THEN BACK TO BED. PT O2 SATS BETTER AFTER BEING OUT OF BED. PT ABLE TO EAT 50 % OF HIS MEAL. NO SLIDING SCALE INSULIN NECESSARY THIS SHIFT. PT MORE ALERT AND ORIENTED THIS SHIFT. ABLE TO CONVERSE EASILY. EUGENIA HELD TODAY THE TROUGH WAS HIGH. PT MIDLINE CATH STILL ABLE TO RETURN BLOOD FOR LAB DRAWS. GAUTAM AT BEDSIDE ALL DAY X2. PT BILSTERS AND SKIN BREAKDOWN FROM BELLY CHAINS CONTINUES TO IMPROVE. VITALS WNL.
--- NOTE | 2017-09-19 20:49 | NUR ---
IN TO ASSESS PT AT 1999. UPDATED PLAN OF CARE WITH PT. DISCUSSED AMBULATING TO BR WITH PT. PT REFUSED. REFUSED TO DO HS CARE. REFUSED INSULIN, PT BS 152. 2 CORRECTIONAL OFFICERS IN ROOM.
--- NOTE | 2017-09-19 21:28 | NUR ---
PT ASLEEP. RR REMAINS LABORED, RATE 22-30.
--- NOTE | 2017-09-20 00:31 | NUR ---
PT SLEEPING ON AND OFF SINCE INITIAL ASSESSMENT. RESTLESS IN BED AND OCCLUDES MIDLINE IV. PT CURRENTLY C/O OF PAIN IN BACK AND FOOT 04/21. IBUPROFEN 400MG GIVEN PO. 2 OFFICERS AT BEDSIDE.
--- NOTE | 2017-09-20 02:25 | NUR ---
PT UP TO BR TO HAVE SMALL FORMED BROWN BM. PT VERY UNSTEADY ON FEET. USES FWW TO AMBULATE.
--- NOTE | 2017-09-20 04:17 | NUR ---
PT INTERMITTENTLY REMOVING NC. SPO2 DECREASES TO 81-84% WHEN 02 OFF.
--- NOTE | 2017-09-20 05:13 | NUR ---
PT PLACED ON BIPAP PER RT AT 0423. HR 80'S, RR17-20, SPO2 100% ON FI02 40%.
--- NOTE | 2017-09-20 08:00 | NUR ---
ASSESSMENT DONE. ON NC AT 4 L. AMBULATED TO BR USING WALKER. HAD FORMED BM THEN BACK TO BED. DR. NORIEGA HERE TO SEE PATIENT. TRANSFER TO MEDICAL FLOOR ORDERS RECIEVED. RLL ELEVATED ON PILLOW. C/O R LEG ANDI 01/20. NO TREATMENT GIVEN AT THIS TIME. ROUTINE MEDS GIVEN. IS COOPERATIVE. 2 OFFICERS IN ROOM.
--- NOTE | 2017-09-20 09:30 | NUR ---
TOOK BREAKFAST FAIR. RESTFUL ON O2 AT 4 L NC. WISHES TO REMAINN OFF BIPAP.
--- NOTE | 2017-09-20 10:00 | NUR ---
PHYS THERAPY HER TO WORK WITH PATIENT. TELE # 10 APPLIED. MATT CATH DC'D AND EMPTIED FOR 425 ML ESTEVAN URINE.
--- NOTE | 2017-09-20 12:00 | NUR ---
PT RECEIVED FROM CCU, TRANSFERED IN BED. PT RR 40, ON 4L NC. LUNG SOUNDS CLEAR. BOWEL TONES ACTIVE, DENIES NAUSEA. PT WITH RIGHT LEG ELEVATED ON PILLOW. IV ABX INFUSING.
--- NOTE | 2017-09-20 12:30 | NUR ---
TRANSFERRED TO ROOM 114 VIA BED. REPORT GIVEN EARLIER.
--- NOTE | 2017-09-20 13:52 | NUR ---
PT IS RESTING IN BED SAFELY WITH CALL LIGHT IN REACH AND BOTH GAURDS IN ROOM. PT ASKED FOR SOUP AND FRUIT.
--- NOTE | 2017-09-20 14:14 | NUR ---
patient needed his nc changed to am oxy mask due to postion.
--- NOTE | 2017-09-20 16:20 | NUR ---
PT RETURNED TO BED FROM BATHROOM, UNSTEADY ON FEET, DOES NOT FOLLOW COMMANDS WELL. PT ON 4L NC, O2 SATS 94%, RR REMAINS ELEVATED 36. LUNG SOUNDS CLEAR. BOWEL TONES ACTIVE. PT ATE 50% OF LUNCH. EDEMA TO LOWER LEGS UNCHANGED, 2 PILLOWS PLACED UNDER RIGHT LEG. IV ABX INFUSING. [employer] OFFICERS AT BEDSIDE. PT DENIES NEEDS AT THIS TIME.
--- NOTE | 2017-09-20 16:28 | NUR ---
PT WANTED TO WALK IN THE HALLWAY. UP TO BATHROOM FIRST. PT SOB WITH RR OF 42. UNSTEADY ON FEET AND WAS TIPSY SITTING ON TOILET. PT HAD BM AND LARGE DARK YELLOW URINE OF 900ML. PT FLUSHED AND SWEATY. REPORTS FEELING HOT, TURNED DOWN HEAT IN ROOM. COLD CLOTH TO NECK. AB CURRENTLY INFUSING.
--- NOTE | 2017-09-20 17:14 | NUR ---
PT RESTING IN BED, RR 28. BLOOD GLUCOE 97, PT DECLINING DINNER AT THIS TIME. PT DIAPHARETIC, FLUSHED. PT DENIES PAIN. PT DENIES NEEDS AT THIS TIME
--- NOTE | 2017-09-20 17:17 | NUR ---
PT IS RESTING IN BED SAFELY WITH CALL LIGHT IN REACH AND TWO GUARDS IN ROOM. PT DOES NOT WANT TO EAT DINNER AT THIS TIME
--- NOTE | 2017-09-20 18:26 | NUR ---
PT RECEIVED FROM CCU AT 1200. PT ON 4L NC/BIPAP/OXYMASK, PT WILL REMOVE OXYGEN AND DESATS TO LOW 80'S, LUNG SOUND SCLEAR. PT ON ADA DIET, POOR INTAKE, DECLINED DINNER. BOWEL TONES ACTIVE, BM TODAY. PT WITH CELLULITIS TO RIGHT LEG, ELEVATED ON PILLOWS, PULSE PALPABLE. PT MATT REMOVED AT 1000, VOIDED. PT WITH HIGH RESPIRATORY RATE 30-40'S. MILD TEMP MAX 99.7.
--- NOTE | 2017-09-20 21:15 | NUR ---
PT ASSESSMENT COMPLETE. PT DENIES PAIN AND NAUSEA. PT ALSO DENIES SOB DESPITE TACHYPNEA. PT ASSISTED TO STAND AND USE URINAL AT BEDSIDE WITH TECHNICAL APPLICATIONS SCIENTIST AND GAURD ASSISTANCE. PT TOLERATED WELL. PT'S LEG RE-ELEVATED ON PILLOWS AFTER WARDS. REDNESS AND WARMTH NOTED TO RLE, REDNESS REMAINS WITHIN PREVIOUSLY MARKED OUTLINE. LEG RESTRAINTS IN PLACE, SKIN UNDERNEATH INTACT. PT DENIES NEEDS AT THIS TIME. CALL LIGHT WITHIN REACH.
--- NOTE | 2017-09-20 22:10 | NUR ---
PT RESTING WITH EYES CLOSED. RESPIRATIONS CONTINUE TO BE TACHYPENIC, O2 IN PLACE AT 4 LPM VIA NC. PT DOES NOT WAKE WHILE POLISHER AND BUFFER IN ROOM. GUARDS REMAIN AT BEDSIDE X 2.
--- NOTE | 2017-09-21 00:35 | NUR ---
PT UP TO USE URINAL AT BEDSIDE. PT ANXIOUS THROUGHOUT, STATES "I FEEL LIKE A DEER BEING CHASED." PT STATES THIS IS DUE TO HAVING TO VOID. PT REQUESTS WATER, PROVIDED, DENIES OTHER NEEDS AT THIS TIME. GAUTAM X 2 AT BEDSIDE. CALL LIGHT WITHIN REACH.
--- NOTE | 2017-09-21 01:20 | NUR ---
PT ASSESSMENT COMPLETE. PT DENIES PAIN, NAUSEA, SOB DESPITE TACHYPNEA. O2 REMAINS IN PLACE, 4 LPM VIA NC. SAO2 IN 90'S. ASSESSMENT UNCHANGED FROM PREVIOUS. PT DENIES FURTHER NEEDS, CALL LIGHT WITHIN REACH.
--- NOTE | 2017-09-21 02:30 | NUR ---
PT AMBULATED TO BATHROOM WITH WALKER AND 2PA. PT ASSISTED BACK TO BED. DENIES FURTHER NEEDS AT THIS TIME. LEG RE-ELEVATED ON PILLOWS. CALL LIGHT WITHIN REACH. GUARDS REMAIN AT BEDSIDE X 2.
--- NOTE | 2017-09-21 05:00 | NUR ---
NURSING SOLAR THERMAL INSTALLER CHANGED MIDLINE DRESSING, REPOSITIONED TUBING D/T OCCLUSION. GUARD ALERTS CATALYST UNIT OPERATOR OF PUMP ALARMING, IV REMAINS POSITIONAL. SM ARM BOARD PLACED AT IV SITE, LOOSELY SECURED WITH KOBAN TO HELP AVOID OCCLUSION. PT TOLERATED WELL. DENIES NEEDS AT THIS TIME. CALL LIGHT WITHIN REACH. GUARDS REMAIN AT BEDSIDE X 2.
--- NOTE | 2017-09-21 06:41 | NUR ---
PT RESTED OFF AND ON THROUGHOUT THE NIGHT. PAIN WELL CONTROLLED. PT DENIES NAUSEA AND SOB. O2 @ 4 LPM. PT TACHYPNEIC. CONTINUOUS PULSE OX IN PLACE, SAO2 90'S THROUGHOUT THE NIGHT. REDNESS TO RLE WITHIN OUTLINE, WARMTH CONTINUES, PULSES PRESENT. BM THIS SHIFT. UO QS.
--- NOTE | 2017-09-21 07:40 | NUR ---
PT RESTING IN BED. PT RATING PAIN 9/10 TO RIGHT LEG, GIVEN 10 MG OXYCODONE. LIDOCAINE PATCH X2 APPLIED TO LOWER BACK. PT LUNG SOUNDS CLEAR, 0N 4L NC, O2 SATS 94%, DESTATS TO MID 80'S WITHOUT OXYGEN. PT BOWEL TONES ACTIVE, TOLERATING ADA DIET, BETTER APPETITE THIS AM, ASSISTED WITH ORDERING BREAKFAST. PT WITH RIGHT LEG CELLULITIS, REDNESS IS BETTER THAN YESTERDAYS ASSESSMENT, WARM TO TOUCH. BILATERLA LEG EDEMA 2+. PT UP WITH 1PA TO BATHROOM, VOIDING.
--- NOTE | 2017-09-21 08:30 | NUR ---
PT ASSISTED TO CHAIR WITH 1PA. PT DENIES OTHER NEEDS AT THIS TIME.
--- NOTE | 2017-09-21 09:15 | NUR ---
IV ABX INFUSING. PT RESTING IN BED. PT DENIES OTHER NEEDS AT THIS TIME.
--- NOTE | 2017-09-21 11:38 | NUR ---
PT COMPLETED WITH PHYSICAL THERAPY. VANCO INFUSION COMPLETED, SALINE LOCKED. PT REPOSITIONED IN BED, 2 PILLOWS PLACED UNDER RIGHT LEG. PT ASSISTED WITH ORDERING LUNCH. PT DENIES OTHER NEEDS AT THIS TIME.
--- NOTE | 2017-09-21 12:00 | NUR ---
PT ASSISTED TO BATHROOM AND THEN TO CHAIR FOR LUNCH. MD TO BEDSIDE, DISCUSSED PLAN OF CARE. PT REQUESTING HYDRALAZINE FOR ANXIETY, DISCUSSED WITH .
--- NOTE | 2017-09-21 14:00 | NUR ---
PT RESTING IN BED. PT ON 4L NC, 02 SATS 92%, LUNG SOUNDS CLEAR, CONTINUES TO BE TACHYPNIC. PT TOLERATING ADA DIET. RIGHT LEG CELLULITIS UNCHANGED, LEG ELEVATED ON PILLOWS. IV INFUSING TO RIGHT MIDLINE. PT VOIDING QS. PT GIVEN PRN HYDROXYZINE FOR ANXIETY. PT DENIES OTHER NEEDS AT THIS TIME.
--- NOTE | 2017-09-21 18:12 | NUR ---
PT CONTINUES TO BE TACHYPNIC, LUNG SOUNDS CLEAR, ON 4L NC, CONTINUOUS PULSE OX. PT ON ADA DIET, DISCONTINUED ACCUCHECKS. PT WITH LIDOCAINE PATCH X2 ON BACK, RECEIVED 10 MG OXYCODONE X2 TODAY FOR RIGHT LEG PAIN. LEG ELEVATED ON PILLOWS, REDNESS IMPROVED COMPARED TO YESTERDAY. PT RECEIVING VANCO, CEFEPIME AND FLAGYL. MIDLINE TO RIGHT UPPER ARM, NEW IV STARTED TO RIGHT HAND. PT UP WITH 1PA TO BATHROOM, AMBULATED IN [place] WITH PHYSICAL THERAPY, MORE STEADY TODAY. VOIDING QS, HAD BM TODAY.
--- NOTE | 2017-09-21 19:30 | NUR ---
PT AWAKE WATCHING TV PROGRAM, STATES HE IS DONE WITH DINNER TRAY, KEEPING RLE ELEVATED ON TWO PILLOWS, RED AREAS MUCH IMPROVED. 2 GUARDS IN ROOM.
--- NOTE | 2017-09-21 21:19 | NUR ---
2 PERSON ASSISTED PATIENT TO HAVE SHOWER. LINEN CHANGED.
--- NOTE | 2017-09-21 22:00 | NUR ---
HS MEDS TAKEN, OXYCODONE GIVEN FOR RLE ACHING. STATES HE FEELS MUCH BETTER AFTER SHOWER. KEEPING LEG ELEVATED, DENIES FURTHER NEEDS. 2 GUARDS IN ROOM.
--- NOTE | 2017-09-21 23:00 | NUR ---
PT IS RESTING QUIETLY, NO FURTHER C/O DISCOMFORT.
--- NOTE | 2017-09-22 01:25 | NUR ---
PATIENT CALLED TO USE THE TOILET. 1 PERSON ASSISTED WITH 2 GUARDS TO THE BATHROOM AND BACK TO BED.
--- NOTE | 2017-09-22 05:15 | NUR ---
PATIENT CALLED TO USE THE BATHROOM. 1 PERSON ASSISTED PATIENT AND BACK TO BED WITH WALKER.
--- NOTE | 2017-09-22 06:02 | NUR ---
PT SLEPT WELL TONIGHT, SHOWER GIVEN EARLIER IN SHIFT, KEEPING RLE ELEVATED AND REDNESS/SWELLING HAS IMPROVED, AFEBRILE, VANC TROUGH-11. CONT. IV ABX. MEDICATED WITH OXYCODONE X1 FOR LEG PAIN AFTER SHOWER. COOPERATIVE WITH CARE. 2 GUARDS IN ROOM.
--- NOTE | 2017-09-22 08:12 | NUR ---
PT IN BED AWAKE. AM CARE. WET WASH CLOTH. PICKED UP ROOM
--- NOTE | 2017-09-22 09:24 | NUR ---
PT SITTING UP IN BED REPORTS PAIN 7/10 IN RLE. EATING APPLESAUCE, BREAKFAST ORDERED. PT A/O, NO OTHER COMPLIANTS OR REQUESTS. PT COPPERATIVE WITH CARE PLAN
--- NOTE | 2017-09-22 12:44 | NUR ---
FRESH COFFEE. TOOK PT TO THE BR
--- NOTE | 2017-09-22 13:33 | NUR ---
OXYCODONE 10MG GIVEN FOR 7/10 PAIN IN RLE. REDNESS SUBSIDING FROM MARKED EDGES. WATER FILLED AND INTAKE DOCUMENTED ON I&O SHEET. NO OTHER NEEDS AT THIS TIME.
--- NOTE | 2017-09-22 16:16 | NUR ---
CARE CONFERENCE ATTENDEES: PT, 2 CORRECTIONAL OFFICERS. STAFF: DR CHRISTIE, [employer], DANYA TONEY. DR CHRISTIE DISCUSSED WITH PT THE CONT NEED AND SLOW IMPROVEMENT OF THE PT ILLNESS, PT STATED UNDERSTANDING JUST QUESTIONED HOW MANY MORE DAYS WOULD HE HAVE TO BE HERE. DR CHRISTIE SAID UNTIL LABS TOLD HIM THE PT WAS READY TO BE DC'D. PT DENIED FURTHER QUESTIONS OR NEEDS.
--- NOTE | 2017-09-22 17:01 | NUR ---
TOOK PT FRESH ICE WATER.
--- NOTE | 2017-09-22 18:09 | NUR ---
CELLULITIS RLE IMPROVING-- MARKED WITH PEN. ADA DIET- NO ACCU CHECKS. RECEIVING METFORMIN. BM THIS MORNING. RECEIVING FLAGYL, CEFEPIME, AND VANCO. MIDLINE [place] AND IV IN RH. PT/OT. SHACKLES TO FEET (EOCI INMATE). 2 GUARDS AT BEDSIDE.
--- NOTE | 2017-09-22 19:15 | NUR ---
BEDSIDE REPORT RECEIVED FROM OFFGOING RNS. PT LYING IN BED WITH RLE ELEVATED ON 2 PILLOWS. PT DENIES NEEDS AT THIS TIME. GUARDS AT BEDSIDE X 2. CALL LIGHT WITHIN REACH.
--- NOTE | 2017-09-22 21:45 | NUR ---
PT ASSESSMENT COMPLETE. PT REPORTS RLE PAIN AFTER AMBULATING TO THE BATHROOM WITH SALES DEVELOPER ASSISTANCE. PT STATES THAT HE WILL WAIT TO SEE IF HE IS ABLE TO FALL ASLEEP WITHOUT PAIN MEDICATION, AND THAT HE WILL CALL FOR PAIN MEDICATION IF NEEDED. PT CONTINUES TO KEEP LEG ELEVATED ON PILLOWS. REDNESS WITHIN OUTLINED AREA, WARMTH TO RLE NOTED. CMS INTACT. SKIN BENEATH BLE SHACKLES INTACT. PT REQUESTS WATER BE REFILLED, PROVIDED. DENIES OTHER NEEDS AT THIS TIME. GUARDS REMAIN AT BEDSIDE. CALL LIGHT WITHIN REACH.
--- NOTE | 2017-09-22 23:00 | NUR ---
PT UTILIZES CALL LIGHT, REQUESTS PAIN MEDICATION FOR PAIN 7-05/22 IN RLE. PRN OXYCODONE ADMINISTERED. PT FOUND WITH O2 OFF, STATES HE WAS "TAKING A BREAK". REMINDED PT TO KEEP IN PLACE, PT STATES UNDERSTANDING. PT ASSISTED TO BATHROOM WITH 1 PA AND FWW, PT TOLERATED WELL. PT DENIES OTHER NEEDS, CALL LIGHT WITHIN REACH.
--- NOTE | 2017-09-23 00:48 | NUR ---
PT RESTING WITH EYES CLOSED. RESPIRATIONS EVEN AND UNLABORED. NO S/SX OF DISTRESS NOTED. O2 NOTED TO BE SLIGHTLY DISLODGED FROM PT'S NOSE. O2 ADJUSTED BY WRTIER, PT STIRS MINIMALLY BUT DOES NOT WAKE. CALL LIGHT WITHIN PT'S REACH. GUARDS AT BEDSIDE X 2.
--- NOTE | 2017-09-23 01:49 | NUR ---
PT ASSESSMENT COMPLETE. PT STATES THAT PAIN IS WELL CONTROLLED AT THIS TIME. RATES 5-6/10. REDNESS AND WARMTH TO RLE CONTINUES WITHIN OUTLINE AREA. REDNESS TO GROIN IMPROVED. RLE REMAINS ELEVATED ON PILLOWS X 3. SKIN BENEATH BLE SHACKLES INTACT. CMS INTACT TO BLE. PT DENIES OTHER NEEDS AT THIS TIME. CALL LIGHT WITHIN REACH. GUARDS AT BEDSIDE X 2.
--- NOTE | 2017-09-23 03:30 | NUR ---
IV ALARMING, ANOTHER RN ATTEMPTS TO FLUSH MIDLINE D/T DISTAL OCCLUSION. MIDLINE WILL NOT FLUSH, UNABLE TO ASPIRATE BLOOD. TUBING CLAMPED, CLAVE CHANGED, STILL UNABLE TO ASPIRATE BLOOD OR FLUSH MIDLINE. INFUSION TUBING DISCONNECTED FROM MIDLINE. MD TO BE NOTIFIED. PT DENIES NEEDS AT THIS TIME, DENIES PAIN TO MIDLINE SITE. GUARDS PRESENT AT BEDSIDE X 2. CALL LIGHT WITHIN PT REACH.
--- NOTE | 2017-09-23 06:18 | NUR ---
PT RESTED OFF AND ON THROUGHOUT THE NIGHT. PRN OXYCODONE X 1 FOR RLE PAIN. REDDNESS TO RLE WITHIN OUTLINE, CONTINUES TO BE WARM TO TOUCH, AND EDEMATOUS. O2 @ 3LPM, CONTINOUS PULSE OX. FLAYGL, VANCO, CEFEPIME. MIDLINE UNABLE TO FLUSH OR ASPIRATE BLOOD. RH IV PATENT. UO QS. 1 PA WITH FWW. MICHELINE FIERRO.
--- NOTE | 2017-09-23 06:24 | NUR ---
NOTIFIED OF INABILITY TO FLUSH OR ASPIRATE BLOOD FROM MIDLINE. DAY SURGERY RN, EDDI CALLED, SHE STATES SHE WILL NOTIFY KENDRA OR ARIADNE PICC RN'S.
--- NOTE | 2017-09-23 08:16 | NUR ---
PT IS DOING WELL. TOOK TO BATHROOM. SET UP FOR BRK. AM CARE. LINEN CHANGE
--- NOTE | 2017-09-23 09:40 | NUR ---
PT A/O. WATCHING TV. PAIN 6/10 OXYCODE ADMINISTERED. PERSONAL ITEMS WITHIN REACH. CALL LIGHT WITHIN REACH. 2 GAURDS AT BEDSIDE.
--- NOTE | 2017-09-23 10:59 | NUR ---
CHANGED MIDLINE DRESSING. ATTEMPTED TO FLUSH. UNABLE TO FLUSH. WILL NOTIFY HOSPITALIST AND AWAIT ORDERS.
== END 2017-09-23 11:45 | disposition still patient (30) | DRG 871 ==
LOC: ED 20:41 → CCU 09-13 00:10 → MS 09-13 00:10
PROVIDERS: ADMIT Internal Medicine
DX: A41.02 Sepsis due to Methicillin resistant Staphylococcus aureus (principal); J96.01 Acute respiratory failure with hypoxia; L03.115 Cellulitis of right lower limb; N17.9 Acute kidney failure, unspecified; E66.2 Morbid (severe) obesity with alveolar hypoventilation; R65.20 Severe sepsis without septic shock; G47.33 Obstructive sleep apnea (adult) (pediatric); E87.5 Hyperkalemia; I10 Essential (primary) hypertension; E78.5 Hyperlipidemia, unspecified; E11.9 Type 2 diabetes mellitus without complications; F31.9 Bipolar disorder, unspecified; F43.10 Post-traumatic stress disorder, unspecified
CPT/HCPCS: 36415; 36569; 36600; 51702; 51798; 71010; 71260; 74000; 80048; 80053; 80202; 81001; 82570; 82803; 83605; 83735; 84300; 84540; 85025; 85610; 85730; 87040; 93005; 93010; 93971; 94640; 94660; 94667; 94668; 94762; 94799; 96365; 96366; 97110; 97116; 97162; 97165; 99285; J0692; J1650; J2060; J2270; J2405; J2997; J3370; J3475; J7030; J7040; J7060; Q9967

== ENCOUNTER 2017-09-23 11:45 | Inpatient (IN) | payer MEDICAID, OTHER ==
[~2017-09-23] VITALS: Ht 182.9 cm; Wt 148.3 kg
[~2017-09-23 11:45] MED LIST: ABILIFY30 MG PO; AMARYL4 MG PO; BACLOFEN10 MG PO; CHLORPROMAZINE100 MG PO; CHLORPROMAZINE200 MG PO; CHLORTHALIDONE25 MG PO; FLOVENT HFA12 G1 INH; HYDROXYZINE HCL50 MG PO; KLONOPIN2 MG PO; LAMICTAL200 MG PO; LAMICTAL25 MG PO; LASIX20 MG PO; LEXAPRO10 MG PO; LISINOPRIL10 MG PO; METFORMIN HCL1000 MG PO; MINIPRESS5 MG PO; NORCO 5-325 TA1 EACH PO; NORVASC10 MG PO; SIMVASTATIN40 MG PO
--- NOTE | 2017-09-23 14:56 | NUR ---
ARIADNE TONEY PLACED PICC LINE. AWAITING X RAY CONFIRMATION.
--- NOTE | 2017-09-23 15:18 | NUR ---
PICC INSERTION NOTE. ORDERS RECIEVED TO EVALUATE ROXANA'S RIGHT ARM MIDLINE IT NO LONGER DRAWS BLOOD AND ONLY FLUSHES WITH GREAT DIFFICULTY. AFTER FOLLOWING THE PROTOCOL AND ADMINISTERING ALTIPLACE, IT STILL WOULD NOT FLUSH. HE HAS VERY POOR ACCESS AND MULTIPLE ANTIBIOTICS DAILY. IT IS EXPECTED THAT THE COURSE OF HIS THERAPY MAY LAST MORE THAN ONE MORE WEEK. FOR THSES REASONS IT IS BEST THAT HE GET A PICC PLACED FOR THE DURATION OF HIS IV ABX THERAPY. RISKS AND COMPLICATIONS OF PICC LINES WERE DISCUSSED WITH THE PT AND INFORMED CONSENT WAS SIGNED PRIOR TO THE START OF THE PROCEDURE. THE LEFT BASILIC VEIN WAS IDENTIFIED AND ACCED ON THE FIRST ATTEMPT AND THERE WERE NO ISSUES ADVANCING THE GUIDE WIRE, INTRODUCER, OR PICC. MAGNET TRACKING WAS USED AND A CXR WAS TAKEN AT THE END OF THE PROCEDURE SHOWING THE PICC IN A CENTRAL LOCATION. DR CONNER REVIEWED THIS XRAY AND CLEARED THE LINE FOR USE. CARE OF PICC LINES WAS DISCUSSED WITH THE PT AND HE UNDERSTANDS THAT HE SHOULD ASK QUESTIONS OF HIS RN IF HE HAS ANY. FULL CDC RECOMENDATIONS REGARDING INFECTION PREVENTION WERE FOLLOWED FOR THE DURATION OF THE PICC INSERTION AND STERILE DRESSING APPLICATION.
--- NOTE | 2017-09-23 15:22 | NUR ---
PATIENT SWING BED, MED REC COMPLETE WHEN PATIENT WAS IN-PATIENT STATUS.
--- NOTE | 2017-09-23 15:32 | NUR ---
PT IN BED AWAKE. TOOK TO THE BATHROOM. FRESH ICE WATER. FELTON
--- NOTE | 2017-09-23 17:35 | NUR ---
PT CHANGED TO SWING BED TODAY. [place] PICC DC'D. NEW PICC PLACED IN [facility]. PT ON AND OFF O2 FOR SATS <90. PT TAKING CEFEPIME AND VANCO IV. FLAGYL CHANGED TO PO. 10MG OXY @ 0945. VSS. RH IV DC'D. ADA DIET. SBA WITH FFW. CONTINUE PULSE OX. ELEVATE PT RIGHT LEG. SWELLING AND REDNESS SUBSIDING. SCABING AND SORE ON PT BOTTOM. CHANGE POSITIONS Q2H.
--- NOTE | 2017-09-23 17:45 | NUR ---
Trough = 19.9 draw prior to 5th dose at 2g q [address] a slightly lower dose of 1750mg q 8 hrs
--- NOTE | 2017-09-23 18:52 | NUR ---
PT SLEEPING. WILL CHECK ON LATER
--- NOTE | 2017-09-23 19:20 | NUR ---
REPORT RECEIVED FROM OFFGOING RN'S.
--- NOTE | 2017-09-23 20:30 | NUR ---
PT ASSESSMENT COMPLETE. PT DENIES PAIN, NAUSEA, AND SOB. PT ON RA AT THIS TIME. SA02 95%, PT AGREES TO INFORM ANESTHESIA ATTENDING IF HE BECOMES SOB. REDNESS TO RLE REMAINS WITHIN OUTLINED AREA. WARMTH AND EDEMA PRESENT. CMS INTACT. RLE ELEVATED ON PILLOWS X 2. SKIN BENEATH SHACKLES INTACT BILATERALLY. PT STATES THAT HE IS GOING STIR CRAZY BEING IN THE HOSPITAL THIS LONG, LAUGHS. PT AGREES THAT HE IS FEELING BETTER, CONTINUES TO JOKE WITH GUARDS AT BEDSIDE X 2. ABX INFUSING THROUGH PICC LINE WITHOUT ISSUE. PT DENIES NEEDS AT THIS TIME. CALL LIGHT WITHIN REACH.
--- NOTE | 2017-09-23 23:37 | NUR ---
pt lying in bed with rle elevated on pillows x2. pt rates pain 8/10 to rle. pain medication requested, prn oxycodone administered. pt requests ice water, provided. pt denies other needs at this time. call light within reach, guards at bedside x2.
--- NOTE | 2017-09-24 02:31 | NUR ---
PT RESTING IN BED WITH EYES CLOSED. RESPIRATIONS EVEN AND UNLABORED. SAO2 94%. PT APPEARS TO BE SLEEPING. PT DOES NOT WAKE WHILE ROCKET PROPELLANT PLANT SUPERVISOR IN ROOM. CALL LIGHT WITHIN PT'S REACH. GUARDS AT BEDSIDE X 2.
--- NOTE | 2017-09-24 04:20 | NUR ---
PT WAKES BRIEFLY WHILE MAILING MACHINE HELPER IN ROOM. PT HAS SLURRED SPEECH THAT IS MOSTLY UNINTELLIGIBLE. WHEN MAILING MACHINE HELPER ASKS PT WHAT HE SAID HE AGREES THAT HE JUST WOKE UP FROM DREAMING AND IS NOT SURE. PT REMAINS DROWSY AND QUICKLY FALLS BACK TO SLEEP BEFORE MAILING MACHINE HELPER LEAVES THE ROOM. GUARDS PRESENT AT BEDSIDE X 2.
--- NOTE | 2017-09-24 05:25 | NUR ---
PT RESTED WELL THIS SHIFT. OXYCODONE X 1 FOR RLE PAIN. REDNESS TO RLE OUTLINED. ELEVATE EXTREMITY ON PILLOWS. NEW PICC LINE PLACED 09/23 TO [place]. PT ON RA, TOLERATING WELL. CONTINUOUS PULSE OX. O2 FOR SAO2 <90. SAB WITH FWW. CEFEPIME, AND VANCO IV. FLAGYL PO.
--- NOTE | 2017-09-24 07:10 | NUR ---
BEDSIDE HANDOFF REPORT RECEIVED RFOM MINIBUS DRIVER RN. PT SITTING ON EDGE OF BED, EOCI CORRECTION OFFICERS AT BEDSIDE. IV CEFEPIME INFUSING. PT ON ROOM AIR, O2 SATS 94%. PT DENIES NEEDS AT THIS TIME.
--- NOTE | 2017-09-24 07:55 | NUR ---
PT SITTING ON EDGE OF BED, EOCI GUARDS AT BEDSIDE. PT RATING PAIN 7/10 AT THIS TIME TO RIGHT LOWER LEG, REQUESTIGN PAIN MEDICATION GIVEN 5MG PO OXYCODONE. PT LUNG SOUNDS CLEAR, ON ROOM AIR, O2 SATS 94%. BOWEL TONES ACTIVE, DENIES NAUSEA ASSISTED WITH ORDERING BREAKFAST. LIDOCAINE PATCH X2 APPLIED TO LOWER BACK. PT WITH SORE TO BACK FROM SHACKLES, HEALING. PT WITH RIGHT LEG REDNESS AND SWELLING, NEW REDNESS NOTED TO RIGHT LATERAL THIGH, OUTLINED. PT WITHSOFT BM YESTERDAY, SENNA HELD. IV CEFEPIME CONTINUES TO INFUSE. PT DENIES OTHER NEEDS AT THIS TIME. DISCUSSED PLAN OF CARE, INCREASED ACTIVITY.
--- NOTE | 2017-09-24 09:52 | NUR ---
FAXED ACTIVITY ASSESSMENT NOTICE TO [facility]
--- NOTE | 2017-09-24 10:15 | NUR ---
PT WORKING WITH PHYSICAL THERAPY, WALKING IN THE ELENA. IV VANCO INFUSING. PT DENIES NEEDS AT THIS TIME.
--- NOTE | 2017-09-24 10:55 | NUR ---
I AND O COMPLETE, VITALS TAKEN
--- NOTE | 2017-09-24 12:45 | NUR ---
PICC JACINTA HEPARIN LOCKED, VANCO INFUSION COMPLETE. PT SITTING ON EDGE OF BED, EATING LUCNH. PT DENIES NEEDS AT THIS TIME.
--- NOTE | 2017-09-24 13:30 | NUR ---
PATIENT UP TO SHOWER. ORAL CARE DONE. NURSE CHANGED LINENS.
--- NOTE | 2017-09-24 14:30 | NUR ---
PT GIVEN 5MG PO OXYCOCONE FOR PAIN 04/21 TO RIGHT LEG. LEG ELEVATED ON CEILING SLING. IV CEFEPIME INFUSING. PT DENIES NEEDS AT THIS TIME.
--- NOTE | 2017-09-24 18:16 | NUR ---
PT HAD UNEVENTFUL DAY. RECEIVING IV VANCO AND CEFEPIME, PO FLAGYL. PT GIVEN OXYCODONE X2 FOR RLE PAIN. PT ON RA-2L NC, DESATS WHEN LAYING IN BED. PT TOLERATING ADA DIET. UP WITH 1PA, WALKED IN ELENA WITH PHYSICAL THERAPY. RLE ELEVATED WITH CEILING SLING PER MD ORDER. PT VOIDING QS.
--- NOTE | 2017-09-24 19:10 | NUR ---
RECEIVED REPORT FROM DAY SHIFT RN. PATIENT IS RESTING IN BED WITH RIGHT LEG ELEVATED. X2 GUARDS AT THE BEDSIDE. NO NEEDS NOTED.
--- NOTE | 2017-09-24 20:00 | NUR ---
patient sitting up on side of bed. ice water refilled. room tidied, whiteboard updated.
--- NOTE | 2017-09-24 21:44 | NUR ---
PATIENT ASSESMENT COMPLETED. PATIENTS EVENING MEDICATIONS GIVEN PER ORDER. PATIENT HAS LOWER SHACKLES IN PLACE BUT NOT UPPER. X2 GUIARDS AT THE BEDISDE. PATIENTS RIGHT LEG IS SLIGHTLY RED, SKIN IS DRY. PATIENTS REDNESS ON LEG HAS NOT LEFT THE OUTLINED AREA THAT WAS MADE BY PREVIOUS RN. PATIENT DENIES ANY NEEDS AT THIS TIME. CALL LIGHT IN REACH.
--- NOTE | 2017-09-24 22:21 | NUR ---
PATIENT GIVEN PRN PAIN MEDICATION PER ORDER. PATIENT RATES PAIN AT A 7/10 IN HIS RIGHT LEG. NO FURTHER NEEDS AT THIS TIME. CALL LIGHT IN REACH. GUARDS AT THE BEDSIDE.
--- NOTE | 2017-09-24 23:58 | NUR ---
patient asleep in bed. guards in room. emptied urinal.
--- NOTE | 2017-09-25 00:11 | NUR ---
PATIENT IS RESTING IN BED WITH EYES CLOSED, RR 16. GUARDS AT THE BEDSIDE. CALL ILT IN REACH.
--- NOTE | 2017-09-25 02:15 | NUR ---
PATIENTS 0200 MEDICATIONS GIVEN PER ORDER. PATIENT DID NOT AWAKEN WHEN IN THE ROOM. PATIENTS PULSE OX READINGS ARE WNL. X2 GUARDS REMAINS AT THE BEDSIDE. CALL LIGHT IN REACH.
--- NOTE | 2017-09-25 02:21 | NUR ---
PATIENT ASLEEP IN BED.
--- NOTE | 2017-09-25 04:09 | NUR ---
HYDRODYNAMICS PROFESSOR GOT PATIENT A DIET SODA. PATIENT HAS NO OTHER NEEDS AT THIS TIME. CALL LIGHT IN REACH. GUARDS IN THE ROOM.
--- NOTE | 2017-09-25 04:11 | NUR ---
PATIENT CALLED TO GET A SODA. DOES NOT NEED ANYTHING ELSE AT THIS TIME.
--- NOTE | 2017-09-25 04:55 | NUR ---
PATIENT RESTED THROUGHOUT THE SHIFT. PATIENT IS SHACKLED ON THE LOWER EXTREMITIES ONLY, UPPER EXT ARE FREE. PATIENT IS ON AN ADA DIET AND TOLERATING IT WELL, NO COMPLAINTS OF NAUSEA. PATIENT RECEIVED PRN PAIN MEDICATION X1. PATIENT IS AAOX3 AND USES CALL LIGHT APPROPRIATELY. PATIENTS RIGHT LEG IS ELEVATED IN SLING ON CEILING. THE REDNESS ON PATIENTS RIGHT LEG IS OUTLINED AND HAS NOT SPREAD PASS THE OUTLINE. PATIENT HAS X2 GUARDS IN THE ROOM.
--- NOTE | 2017-09-25 06:32 | NUR ---
PATIENTS MORNING MEDICATIONS GIVEN PER ORDER. PATIENT DENIES ANY PAIN AT THIS TIME. REDNESS ON PATIENTS RIGHT LEG HAS STAYED THE SAME. PATIENT DENIES ANY NEEDS AT THIS TIME. CALL LIGHT IN REACH. X2 GUARDS IN THE ROOM.
--- NOTE | 2017-09-25 09:52 | NUR ---
PT IS SITTING UP ON SIDE OF BED. TWO GUARDS IN ROOM.
--- NOTE | 2017-09-25 15:23 | NUR ---
PT IS RESTING IN BED WITH CALL LIGHT IN REACH. TWO GUARDS IN ROOM. PTASKED FOR MORE ICE WATER.
--- NOTE | 2017-09-25 17:55 | NUR ---
PT IS RESTING SAFEKY IN BED WITH CALL LIGHT IN REACH AND TWO GUARDS IN ROOM. PT DID NOT NEED ANYTHING AT THE MOMENT
--- NOTE | 2017-09-25 18:02 | NUR ---
PATIENT REFUSED HIS SENNAKOT AT THIS TIME, 1700 MEDICATION GIVEN TO HIS WITH WATER.
--- NOTE | 2017-09-25 18:38 | NUR ---
PATIENT UP THROUGHOUT DAY AMBULATING IN HALLS. REDNESS IMPROVED TO LEG, WARM TO TOUCH. NO NEW REDNESS. PATIENT ELEVATED LEG THROUGHOUT DAY. STATES "I FEEL LIKE ITS GETTING BETTER". IV ANTIBIOTICS INFUSED THORUGHOUT DAY. PATIENT AFEBRILE. LIDOCAINE PATCHES TO LOWER BACK, SORES APPEAR SCABBED. SHACKLES TO FEET IN PLACE, NO SKIN BREAKDOWN NOTED.
--- NOTE | 2017-09-25 20:04 | NUR ---
RECEIVED REPORT FROM KATHARINA ALTAMIRANO RN. PATIENT IS RESTING IN BED WITH RIGHT LEG ELEVATED. NO NEEDS AT THIS TIME. X2 GUARDS AT THE BEDSIDE.
--- NOTE | 2017-09-25 21:37 | NUR ---
PATIENT ASSESMENT COMPLETED. PATIENTS EVENING MEDICATIONS GIVEN PER ORDER. PATIENT RATES PAIN AT A 4/10. PATIENT DENIES THE NEED FOR ANY PAIN MEDICATION AT THIST TIME. PATIENT HAS VANICREAM ORDERED, BUT PHARMACY SAYS ITS NOT AVAILABLE UNTIL THE MORNING. PATIENTS REDNESS ON RIGHT LEG HAS DECREASED SOME, HAS NOT SPREAD FROM OUTLINED AREA. PATIENT REMAINS SHACKELED ON LOWER EXT. X2 GUARDS IN THE ROOM. PATIENT DENIES ANY FURTHER NEEDS. CALL LIGHT IN REACH.
--- NOTE | 2017-09-25 23:30 | NUR ---
PATIENTS 2300 IV ABX GIVEN PER ORDER. PATIENT CONTINUES TO REST IN BED WITH EYES CLOSED. PULSE OX READINGS ARE WNL. X2 GUARDS REMAIN IN THE ROOM. CALL LIGHT IN REACH.
--- NOTE | 2017-09-26 01:21 | NUR ---
PATIENT IS RESTING IN BED WITH EYSE CLOSED. PULSE OX READINGS ARE WNL. X2 GUARDS REMAIN IN THE ROOM. CALL LIGHT IN REACH.
--- NOTE | 2017-09-26 02:57 | NUR ---
PATIENTS 0200 IV ABX STARTED PER ORDER. PATIENT CONTINUES TO REST IN BED WITH EYES CLOSED. PULSE OX READINGS ARE WNL. PATIENT DENIES ANY FURTHER NEEDS
--- NOTE | 2017-09-26 05:00 | NUR ---
PATIENT RESTED WELL THROUGHOUT THE SHIFT. PATIENT DENIED THE NEED FOR PAIN MEDICATION DURING THE SHIFT. PATIENT IS A 1PA AND IS STEADY ON HIS FEET. PATIENT IS ON 2L VIA NC WHILE ASLEEP. PATIENT HAS A PULSE OX IN PLACE. PATIENT HAS A PICC IN HIS LEFT ARM THAT PULLS BACK BLOOD AND FLUSHES WELL. PICC IS HEP/SL WHEN NOT IN USE. PATIENT IS ON AN ADA DIET, TOLERATING WELL, NO COMPLAINTS OF NAUSEA. PATIENT HAS RIGHT LEG ELEVAETD WITH OVERHEAD OBDULIO. PATIENT IS SHACKLED ON LOWER EXT BUT NOT UPPER. X2 GUARDS IN THE ROOM AT ALL TIMES.
--- NOTE | 2017-09-26 07:06 | NUR ---
BLOOD DRAWN FROM PICC. PATIENTS MORNING ABX GIVEN PER ORDER. PATEINT DENIES ANY NEEDS. X2 GUARDS REMAIN IN THE ROOM. CALL LILA PALOMINO.
--- NOTE | 2017-09-26 09:42 | NUR ---
PT IS SITTING UP IN CHAIR, CALL LIGHT IN REACH, TWO GUARDS IN ROOM.
--- NOTE | 2017-09-26 11:00 | NUR ---
DR. CHRISTIE ROUNDED ON PATIENT, EMPHASIZED PATIENT TO HAVE LEG ELEVATED IN SLING. PROVIDED PATIENT WITH INSTRUCTION. PATIENT VERBALIZED UNDERSTANDING. NO RATES PAIN 7/10 ON PAIN SCALE, STATES IT DOESN'T GET BETTER EVEN WITH PAIN MEDICATION. UP IN ROOM INDEPENDANTLY. PICC LINE FLUSHES WELL AND PULLS BACK BLOOD.
--- NOTE | 2017-09-26 14:10 | NUR ---
PT SITTING UIN BED, WITH ONE GUARD BY HIS SIDE. PT SAID HE IS NOT HAVING A VERY GOOD DAY-NOT ALLOWED TO TALK TO HIS FAMILY. I TOLD HIM I COULDN'T HELP WITH THAT ISSUE, BUT I WAS CONCERNED ABOUT HOW HE IS DOING PHYSICALLY. HE SAID THAT HE FEELS BETTER, BUT IS HAVING A PROBLEM KEEPING HIS LEG UP. EXTENDED A BLESSING, HE DID THE SAME
--- NOTE | 2017-09-26 16:00 | NUR ---
CHANGED DRSG TO PICC LINE, OLD DRSG FALLING OFF. NO SIGNS SYMPTOMS OF INFECTION. STERILE TECHNIQUE USED. VS STABLE. PATIENT APPEARS CALM AND COMFORTABLE.
--- NOTE | 2017-09-26 19:25 | NUR ---
BEDSIDE REPORT RECEIVED FROM DAWNA ERAZO, PT AWAKE IN BED, LEG ELEVATED IN SLING, CEFEPIME INFUSING AT 25 ML/HR IN PICC LINE WNL. PT STATES PAIN IS 7/10, "GETTING BETTER". GUARDS IN ROOM WITH PT. CALL LIGHT IN REACH.
--- NOTE | 2017-09-26 20:45 | NUR ---
PT SITTING UP AT SIDE OF BED WITH GUARDS IN ROOM. IV PUMP BEEPING, REASSESSED, FLUSHED WITH 10 ML NS, GOOD BLOOD RETURN, FLUSHES WELL. PT HAS NO REQUESTS AT THIS TIME, WILL CONTINUE TO MONITOR.
--- NOTE | 2017-09-26 21:28 | NUR ---
PT ASSESSMENT COMPLETE. PICC LINE HEP LOCKED AT THIS TIME, WNL, BLOOD RETURN, FLUSHES WELL. PT LUNGS CLEAR THROUGHOUT ALL LOBES ON AUSCULTATION. PT STATES PAIN IS 6-7/10 IN RIGHT LEG, ANKLE, 6/10 IS TOLERABLE PER PT. PT LYING DOWN, LEG ELEVATED, REDNESS NOTED IN LOWER LEG, LOTION APPLIED. PT DENIES REQUESTS AT THIS TIME, GUARDS PRESENT IN ROOM, CALL LIGHT IN REACH.
--- NOTE | 2017-09-26 22:35 | NUR ---
PHONE CALL TO TELE PHARMACY, PER PHARRMACIST, CEFEPIME AND VANCOMYCIN ARE NOT COMPATIBLE.
--- NOTE | 2017-09-27 00:21 | NUR ---
IN PT ROOM, IV PUMP BEEPING. PT EDUCATED ON KEEPING ARM STRAIGHT, REPOSITIONED LEFT ARM ON PILLOW, ELEVATED LEGS W BED CONTROLS FOR EDEMA. GUARDS PRESENT IN ROOM, EDUCATED GUARDS AND PT TO CALL IF PUMP BEEPS AGAIN, NOT TO SILENCE ALARM. CALL LIGHT IN REACH.
--- NOTE | 2017-09-27 01:35 | NUR ---
GUARD CAME TO NURSES STATION, STATED PUMP WAS NOT PUMPING. UPON ENTERING ROOM LINE B SETTINGS WERE CLEARED. ANTIBIOTICS NOW INFUSING AT 25 ML/HR WNL TO PICC LINE. INSTRUCTED GUARDS NOT TO SILENCE PUMP OR TOUCH PUMP ANTIBIOTIC INFUSION WAS HALTED, CHARGE NURSE LISA INFORMED OF INCIDENT, LISA ALSO INSTRUCTED GUARDS NOT TO TOUCH PUMP. PT SLEEPING AT THIS TIME, VISIBLE CHEST RISE. CALL LIGHT IN REACH.
--- NOTE | 2017-09-27 04:05 | NUR ---
IN PT ROOM TO START NEW IV DUE TO IV ANTIBIOTIC INCOMPATABILITIES PER TELEPHARMACY. 22 GAUGE IV STARTED IN PT RIGHT HAND, IV CEFEPIME AND IV VANCOMYCIN INFUSING AT THIS TIME WNL. PT AMOS WELL. PT LYING IN BED, REQUESTED COFFEE. CALL LIGHT IN REACH, GUARDS PRESENT IN ROOM.
--- NOTE | 2017-09-27 05:30 | NUR ---
PT ALERT, ORIENTED X 3, HAS HAD NO REPORTED ANXIETY THIS SHIFT. PT HAS SLEPT OFF AND ON THROUGHOUT SHIFT. CONTINUES TO RECEIVE IV ANTIBIOTICS, PICC LINE HAS GOOD BLOOD RETURN, FLUSHES WELL. NEW IV IN RIGHT HAND WNL. PT HAS HAD LEGS ELEVATED WHILE SLEEPING. INDPENDENT IN ROOM, UP TO RESTROOM FOR VOIDS. GUARDS PRESENT IN ROOM THROUGHOUT SHIFT. PT COOPERATIVE AND APPROPRIATE THROUGHOUT SHIFT.
--- NOTE | 2017-09-27 06:20 | NUR ---
PICC LINE HEPARIN LOCKED WNL. PT AWAKE, SITTING UP IN BED. TOOK PT'S BREAKFAST ORDER. PT HAS NO ADDITIONAL REQUESTS AT THIS TIME, GUARDS PRESENT IN ROOM.
--- NOTE | 2017-09-27 07:48 | NUR ---
BEDSIDE REPORT RECEIVED FROM JEREMÍAS. PATIENT APPEARS TO BE SLEEPING AT THE TIME OF REPORT. GUARDS IN ROOM. REDNESS NOTED ON THE RIGHT LEG. ABX INFUSING. NO APPARENT DISTRESS NOTED. RR EVEN/UNLABORED.
--- NOTE | 2017-09-27 08:15 | NUR ---
patients tray emptied. patient tolerated 100 percent of breakfast. reminded patient that his leg needs to be elevated. patient stating that he understood. 2 guards in room. compatability sheet for antibiotics placed in room.
--- NOTE | 2017-09-27 09:00 | NUR ---
IN TO ROOM TO ASSESS PATIENT. PATIENT DENIES NAUSEA. MARKED REDNESS NOTED ON THE RIGHT LEG. MILD SWELLING ALSO NOTED IN BOTH LOWER EXTREMITIES. SHAKLE IN PLACE IN LOWER EXT. IV SITES WNL ABX INFUSING. MORNING MED ADMINISTERED. PATIENT ATE 100% OF HIS BREAKFAST. CALL LIGHT AND PERSONAL BELONGING WITHIN REACH.
--- NOTE | 2017-09-27 10:00 | NUR ---
PATIENT RESTING IN BED. LEG ELEVATED. ANTIBIOTIC STARTED. PATIENT TOLERATING WELL. NO OTHER NEEDS AT THIS TIME. PUMP PROGRAMED CORRECTLY.
--- NOTE | 2017-09-27 13:40 | NUR ---
PT ASLEEP WOKE HIM TO DO VITALS. FREH ICE WATER.
--- NOTE | 2017-09-27 13:50 | NUR ---
PATIENT RESTING IN BED AT THIS TIME. GUARDS IN ROOM.
--- NOTE | 2017-09-27 15:24 | NUR ---
PATIENT RESTING IN BED DENIES PAIN AT THIS TIME. IV ABX STARTED AND PO MED ADMINISTERED. GUARDS IN ROOM. NO OTHER REQUEST MADE.
--- NOTE | 2017-09-27 16:33 | NUR ---
GILBERTO IS IN ROOM WITH GUARDS AND HAS BEEN RESTING MOST OF THE DAY, HE GOT HIS DINNER ORDERED AND IS CURRENTLY AWAITING HIS MEAL.
--- NOTE | 2017-09-27 17:47 | NUR ---
PATIENT HADN'T FINISHED ALL HIS DINNER ABOUT 75% WANTED TO SAVE HIS MAC AND CHEESE, I BROUGHTGUARDS A COFFEE AND ASKED IF HE NEEDED ANYHTING ELSE AFTER ENTERING THE OUTPOUT AND INPUT, HE SAID NO HE DIDNT.
--- NOTE | 2017-09-27 18:09 | NUR ---
PATIENT RESTING IN BED, IV VANCO STARTED. NO OTHER NEEDS AT THIS TIME. CALL LIGHT WITHIN REACH.
--- NOTE | 2017-09-27 19:24 | NUR ---
PATIENT HAD DONE WELL TODAY. PRN PAIN MED WAS GIVEN. REDNESS IN THE RIGHT LEG DECREASED. INDEPENDENT IN ROOM. PICC LINE IN PLACE, FLUSHED WELL. ABX INFUSING WELL.
--- NOTE | 2017-09-27 19:49 | NUR ---
PT IS RESTING COMFORTABLY ON BED WATCHING A MOVIE. R LEG IS ELEVATED, EDEMA/REDNESS IS DECREASES. REMAINS AFEBRILE, DENIES ANY NEEDS AT THIS TIME. 2 GUARDS IN ROOM. VANCO INFUSING.
--- NOTE | 2017-09-27 23:47 | NUR ---
HS MEDS GIVEN, UP TO BATHROOM, IN GOOD SPIRITS, COOPERATIVE WITH CARE, BACK TO BED WITH RLE ELEVATED ON TWO PILLOWS. GUARDS IN ROOM.
--- NOTE | 2017-09-28 03:26 | NUR ---
RESTING QUIETLY IN BED, RESP EVEN AND UNLABORED. CONT. IV ABX, KEEPING RLE ELEVATED. 2 GUARDS IN ROOM.
--- NOTE | 2017-09-28 06:24 | NUR ---
PT SLEPT WELL TONIGHT, NO REQUESTS FOR PAIN MEDICATION, HAS KEPT RLE ELEVATED ON AND OFF ALL SHIFT, REMAINS AFEBRILE, CONT. SCHEDULED ABX, VANCO TROUGH TO BE DONE @ 0730. INDEP IN ROOM WITH ASSIST OF GUARDS. COOPERATIVE WITH CARE.
--- NOTE | 2017-09-28 08:20 | NUR ---
PT U IN BED. FINISHED BREAKFAST. 2 GAURDS AT BEDSIDE. ANTIBIOTIC INFUSING @ 25ML/HR. PAIN 02/19. SAID HE'LL WAIT FOR MORNING MEDS. CALL LIGHT WITHIN REACH. PERSONAL ITEMS WITHIN REACH.
--- NOTE | 2017-09-28 10:43 | NUR ---
VS NORMAL. PT UP TO SHOWER. 2 GAURDS AT BEDSIDE. PAIN 01/20. WIHOUSTONL CONTINUE TO MONITOR. WILL APPLY VANICREAM AND LIDOCAINE PATCHES WHEN SHOWER IS COMPLETE.
--- NOTE | 2017-09-28 11:34 | NUR ---
pt out of shower. applied vanacream and lidocaine patches to lower back. pain under control. 2 gaurds at bedside. pt in a good mood. bhumi oliveros.
[2017-09-28] MEDS ORDERED: IBUPROFEN400 MG PO (12:04)
--- NOTE | 2017-09-28 13:49 | NUR ---
PATIENT WAS IN BED, I PUT IN HIS INTAKE AND OUTPUT AND ASKED IF HE NEEDED ANY ASSISTANCE AT THE TIME HE SAID NO.
--- NOTE | 2017-09-28 16:23 | NUR ---
TATA SHIFT CHANGE. PT COMPORTABLE IN BED WATCHING TV. NO PAIN REPORTED. CALL LIGHT IN REACH. ROOM TITIED UP.
--- NOTE | 2017-09-28 18:00 | NUR ---
HX DM, BIPOLAR, CELLULITIS IN RLE. PO FLAGYL, IV VANCO AND CEFEPIME. MINIMUL PAIN THROUOUGHT SHIFT. 2 GAURDS AT BEDSIDE. SHOWERED. PICC IN LEFT UPPER ARM. 22G IN RIGHT HAND. INDEPENDENT. VSS. SWING BED. ADA DIET.PLANNED DISCHARGE FOR 09/30/17 WHEN ANTIBIOTICS ARE COMPLETED. RIGHT LEG UP IN SLING. COAPERATIVE WITH CARES.
--- NOTE | 2017-09-28 20:33 | NUR ---
SITTING UP IN BED WATCHING TV PROGRAM, TALKING AND JOKING WITH GUARDS IN ROOM. ENC TO KEEP RLE ELEVATED. DENIES ANY NEEDS.
--- NOTE | 2017-09-28 21:20 | NUR ---
VITALS AND I&O DONE. PT RESTING COMFORTABLE. CALL LIGHT IN REACH
--- NOTE | 2017-09-29 00:40 | NUR ---
RESTING COMFORTABLY. RLE ELEVATED ON PILLOW. DENIES ANY NEEDS.
--- NOTE | 2017-09-29 02:45 | NUR ---
AWAKE, UP TO BATHROOM TO VOID, NO COMPLAINTS, GUARDS IN ROOM.
--- NOTE | 2017-09-29 06:57 | NUR ---
PT AWAKE SITTING UP ON EDGE OF BED. IN GOOD SPIRITS. RLE CONT TO IMPROVE. DECREASED EDEMA AND REDNESS, REMAINS AFEBRILE.
--- NOTE | 2017-09-29 07:39 | NUR ---
PT RESTING IN BED. ALERT, REQUESTED COFFEE THIS WAS PROVIDED. NO COMPLIANTS. NO DISTRESS NOTED. RLE SHOWING CONTINUED IMPROVEMENT, DECREASED REDDNESS AND SWELLING.
--- NOTE | 2017-09-29 07:46 | NUR ---
RECIEVED REPORT FROM KAYA RN. PT AWAKE IN ROOM. 2 GAURDS AT BEDSIDE. PT STATED HE DIDN'T SLEEP WELL LAST NIGHT AND WOUNLD LIKE TO SEE THE DOCTOR ABOUT A SLEEP AID. CEFEPIME RUNNING @ 25ML/HR. NO PAIN VISIBLE.
--- NOTE | 2017-09-29 09:01 | NUR ---
PT UP AMBULATING IN HALLS WITH PHYSICAL THERAPY AT THIS TIME
--- NOTE | 2017-09-29 10:15 | NUR ---
IV VANCO INFUSING FOR 2 HOURS VIA LEFT PICC LINE. RIGHT HAND SL REMOVED IT WAS PULLED OUT UNDER THE TAPE. NO BLEEDING OR INFILTRATION NOTED.
--- NOTE | 2017-09-29 10:22 | NUR ---
PATIENT SITTING UP IN BED WATCHING TV. 2 GAURDS IN ROOM. FRESH SHEETS. FRESH ICE WATER AND COFFEE. PATIENT WOULD LIKE TO SHOWER AFTER IV ANTIBIOTICS ARE FINISHED. ORAL CARE DONE. WASH CLOTH GIVEN FOR HANDS AND FACE. CALL BUTTON IN REACH. NO OTHER NEEDS AT THIS TIME. = Note Type Description
--- NOTE | 2017-09-29 12:58 | NUR ---
PT IN BED WITH LEG IN SLING. HE IS ALERT AND ORIENTED. HE MENTIONED THAT HE WASN'T SURE WHEN HE WOULD BE RELEASED. VISITED WITH HIM ABOUT KEEPING HIS LEG UP AND OTHER SUGGESTIONS HE FOUND DOABLE. EXTENDED A BLESSING, GUARDS SEEMED INTERESTED IN OUR DISCUSSION WELL
--- NOTE | 2017-09-29 13:07 | NUR ---
PATIENT UP TO SHOWER. LINENS CHANGED. 2 GAURDS IN ROOM. NO OTHER NEEDS AT THIS TIME.
--- NOTE | 2017-09-29 13:47 | NUR ---
PATIENT SITTING UP IN BED CALL BUTTON IN REACH. NO OTHER NEEDS AT THIS TIME.
--- NOTE | 2017-09-29 18:06 | NUR ---
PICC INE IN LEFT0 ARM. VANO AND CEF IV. FLAGYL PO. INDEPENDENT IN ROOM. GAURDS AT BEDSIDE. ADA DIET. PLAN FOR DISCHARGE TOMORROW. PT REALLY WANTS TO TALK TO THE DOCTOR ABOUT WHEN HE GETS TO LEAVE. RIGHT LEG IN SLING.
--- NOTE | 2017-09-29 18:56 | NUR ---
PATIENT RESTING IN BED WITH EYES CLOSED.
--- NOTE | 2017-09-29 19:02 | NUR ---
DR CHRISTIE CALL PER PT REQUEST FOR ADITIONAL SLEEP AID. NO NEW ORDERS. VISTRIL GIVEN FOR ANXIETY AT THIS TIME.
--- NOTE | 2017-09-29 20:05 | NUR ---
RECEIVED REPORT FROM DAY SHIFT RN. PATIENT IS RESTING IN BED. PATIENT DENIES ANY PAIN. X2 GUARDS ARE AT THE BEDSIDE. PATIENT DENIES ANY NEEDS. CALL LIGHT IN REACH.
--- NOTE | 2017-09-29 21:02 | NUR ---
VITAL SIGNS AND I&O TAKEN. REFILLED ICE WATER. DAWNA CODY IS IN THE ROOM.
--- NOTE | 2017-09-29 21:05 | NUR ---
PATIENT ASSESMENT COMPLETED. PATIENTS EVENING MEDCIATIONS GIVEN PER ORDER. PATIENT IS RESTING IN BED WATCHING TV. PATIENT DENIES ANY PAIN. VANICREAM APPLIED TO PATIENTS RIGH LOWER LEG PER ORDER. PATIENTS LEG IS NOT HOT TO THE TOUCH. PATIENTS ALL 4 EXTREMETIES ARE RESTRAINED NO SKIN BREAK DOWN NOTED. PATIENT HAS X2 GARDS IN THE ROOM. NO FURTHER NEEDS NOTED. CALL LIGHT IN REACH.
--- NOTE | 2017-09-29 23:58 | NUR ---
PATIENT IS RESTING IN BED WATCHING TV. PATIENT RATES PAIN AT A 5/10 IN HIS RIGHT LOWER LEG. PATIENT GIVEN PRN PAIN MEDICATION PER ORDER. PATIENT DENIES ANY FURTHER NEEDS. CALL LILA ALAN.
--- NOTE | 2017-09-30 01:14 | NUR ---
PATIENT IS RESTING IN BED WITH EYES, RR18. PATIENTS IV ABX DONE INFUSING. PICC LINE IS NOW SL. CALL LIGHT IN REACH.
--- NOTE | 2017-09-30 02:12 | NUR ---
PATIENTS 0200 ABX GIVEN PER ORDER. PATIENT CONTINUES TO REST IN BED WITH EYES CLOSED. BREATHING IS EVEN AND UNLABORED. CALL LIGHT IN REACH. X2 GUARDS IN THE ROOM.
--- NOTE | 2017-09-30 10:24 | NUR ---
PT GIVEN MORNING MEDS BY MARYANNE MUÑOZ RN AND DOCUMENTED ON WRITTEN MEDICATION ADMINISTRATION RECORD D/T [facility].
--- NOTE | 2017-09-30 11:13 | NUR ---
PT IS DOING WELL. SET UP FOR SHOWER. LINEN CHANGE. ICE CHIPS.
--- NOTE | 2017-09-30 13:07 | NUR ---
report called to [facility] at 1305. all questions answered.
== END 2017-09-30 13:00 | disposition home or self-care (01) | DRG 603 ==
LOC: MS 11:45
PROVIDERS: ADMIT Internal Medicine
DX: L03.115 Cellulitis of right lower limb (principal); E66.2 Morbid (severe) obesity with alveolar hypoventilation; B96.89 Other specified bacterial agents as the cause of diseases classified elsewhere; G47.33 Obstructive sleep apnea (adult) (pediatric); I10 Essential (primary) hypertension; E11.9 Type 2 diabetes mellitus without complications; Z79.4 Long term (current) use of insulin; F31.9 Bipolar disorder, unspecified; F43.10 Post-traumatic stress disorder, unspecified; J45.40 Moderate persistent asthma, uncomplicated
CPT/HCPCS: 36415; 71010; 80069; 80202; 85025; 94640; 94668; 97110; 97116; 97162; 97165; J0692; J1650; J3370; J7040; J7060